=== PATIENT | female | born 1995 | race Caucasian/White ===

== ENCOUNTER 2020-07-19 07:30 | Outpatient (REF) | payer MEDICAID, SELFPAY ==
[2020-07-19 11:23] LABS: MANUAL DIFF FLAG NO
[2020-07-19 11:42] LABS: Basophils Percent Auto 0.2 % (0-2); Eosinophils Absolute Auto 0.1 X10*3/uL (0.0-0.4); Eosinophils Percent Auto 1.3 % (0-4); Hemoglobin 13.7 g/dl (12.0-16.0); Imm Gran Abs Auto 0.03 X10*3/uL (0.00-0.03); Imm Gran Pct Auto 0.3 % (0.0-0.4); Lymphocytes Absolute Auto 2.6 X10*3/uL (1.2-4.9); Lymphocytes Percent Auto 29.4 % (20-40); Mean Corpuscular HGB Conc 32.6 g/dl (31.0-35.0); Mean Corpuscular Hemoglobin 29.6 pg (27.0-33.0); Mean Corpuscular Volume 90.7 fL (80-98); Mean Platelet Volume 10.6 fL (9.4-12.3); Monocytes Absolute Auto 0.5 X10*3/uL (0.1-1.2); Monocytes Percent Auto 6.1 % (2-11); Neutrophils Absolute Auto 5.6 X10*3/uL (2.0-8.3); Neutrophils Percent Auto 62.7 % (45-73); Platelet Count 289 X10*3/uL (160-400); Red Blood Count 4.63 X10*6/uL (4.20-5.50); Red Cell Distribution Width 12.3 % (11.0-16.0); White Blood Count 8.9 X10*3/uL (4.8-10.8)
[2020-07-19 12:19] LABS: TSH reflex Free T4 1.14 mIU/mL (0.32-4.0); Vitamin D 25-OH Total 9.8 ng/mL (>30)
[2020-07-19 12:21] LABS: Alanine Aminotransferase 24 U/L (0-31); Anion Gap 13 (12-20); Aspartate Amino Transferase 18 U/L (5-31); Blood Urea Nitrogen 18 mg/dL (9-16); Carbon Dioxide 26 mmol/L (22-29); Chloride 105 mmol/L (96-108); Cholesterol 230 mg/dL; Estimated Glomerular Filt Rate > 60; Glucose Fasting 104 mg/dL (60-99); HDL Cholesterol 35 mg/dL; LDL Cholesterol Calculated 143 mg/dl; Potassium 4.1 mmol/l (3.3-5.1); Sodium 140 mmol/L (135-145); Triglycerides 260 mg/dL
== END 2020-07-19 07:31 | disposition home or self-care (01) ==
LOC: HO.HMGCLDS 07:30
PROVIDERS: PCP Internal Medicine; Visit Provider Internal Medicine
DX: E55.9 Vitamin D deficiency, unspecified (principal); E66.09 Other obesity due to excess calories; Z68.34 Body mass index [BMI] 34.0-34.9, adult; E78.2 Mixed hyperlipidemia; Z00.01 Encounter for general adult medical examination with abnormal findings; I10 Essential (primary) hypertension
CPT/HCPCS: 36415; 80048; 80061; 82306; 84443; 84450; 84460; 85025

== ENCOUNTER → 2020-08-04 09:49 | Outpatient (BNVA) | payer OTHER, SELFPAY | PROVIDERS: PCP Internal Medicine; Visit Provider Obstetrics & Gynecology | DX: Z30.09 Encounter for other general counseling and advice on contraception (principal) | CPT/HCPCS: 99212 ==

== ENCOUNTER 2021-02-28 09:57 | Outpatient (REF) | payer OTHER, SELFPAY ==
[2021-02-28 11:14] LABS: MANUAL DIFF FLAG NO
[2021-02-28 11:28] LABS: Basophils Percent Auto 0.3 % (0-2); Eosinophils Absolute Auto 0.1 X10*3/uL (0.0-0.4); Eosinophils Percent Auto 1.4 % (0-4); Hematocrit 39.6 % (37-47); Hemoglobin 12.9 g/dl (12.0-16.0); Imm Gran Abs Auto 0.03 X10*3/uL (0.00-0.03); Imm Gran Pct Auto 0.4 % (0.0-0.4); Lymphocytes Absolute Auto 2.1 X10*3/uL (1.2-4.9); Lymphocytes Percent Auto 26.4 % (20-40); Mean Corpuscular HGB Conc 32.6 g/dl (31.0-35.0); Mean Corpuscular Hemoglobin 29.1 pg (27.0-33.0); Mean Corpuscular Volume 89.4 fL (80-98); Mean Platelet Volume 10.1 fL (9.4-12.3); Monocytes Absolute Auto 0.5 X10*3/uL (0.1-1.2); Monocytes Percent Auto 5.8 % (2-11); Neutrophils Absolute Auto 5.2 X10*3/uL (2.0-8.3); Neutrophils Percent Auto 65.7 % (45-73); Platelet Count 295 X10*3/uL (160-400); Red Blood Count 4.43 X10*6/uL (4.20-5.50); Red Cell Distribution Width 12.5 % (11.0-16.0); White Blood Count 7.9 X10*3/uL (4.8-10.8)
[2021-02-28 11:31] LABS: Estimated Average Glucose 108 mg/dL; Hemoglobin A1c % 5.4 %
[2021-02-28 14:21] LABS: Cholesterol 253 mg/dL; Glucose Fasting 101 mg/dL (60-99); HDL Cholesterol 36 mg/dL; LDL Cholesterol Calculated 153 mg/dl; Triglycerides 324 mg/dL
[2021-02-28 14:44] LABS: TSH reflex Free T4 1.32 uIU/mL (0.32-4.0); Vitamin D 25-OH Total 31.3 ng/mL (>30)
== END 2021-02-28 09:58 | disposition home or self-care (01) ==
LOC: HO.HMGCLDS 09:57
PROVIDERS: PCP Internal Medicine; Visit Provider Internal Medicine
DX: E66.09 Other obesity due to excess calories (principal); Z68.34 Body mass index [BMI] 34.0-34.9, adult; E55.9 Vitamin D deficiency, unspecified; E78.2 Mixed hyperlipidemia; R53.83 Other fatigue; E07.89 Other specified disorders of thyroid
CPT/HCPCS: 36415; 80061; 82306; 82947; 83036; 84443; 85025

== ENCOUNTER 2021-03-08 11:37 | Outpatient (REF) | payer OTHER, SELFPAY ==
--- NOTE | ~2021-03-08 | US_ITS ---
EXAMINATION: US THYROID CLINICAL INFORMATION: Other specified disorders of thyroid. COMPARISON: None TECHNIQUE: Linear transducer grayscale and color Doppler examination with attention to the region of the thyroid. FINDINGS: SIZE: Measurements of the thyroid lobes and nodules are given in sagittal, anteroposterior and transverse dimensions respectively. Right Thyroid Lobe: 5.1 x 1.8 x 1.9 cm, volume 9.1 mL. Parenchyma: The gland echotexture is homogeneous. Thyroid vascularity is normal. Left Thyroid Lobe: 4.5 x 1.6 x 1.9 cm, volume 7.2 mL. Parenchyma: The gland echotexture is homogeneous. Thyroid vascularity is normal. Isthmus: 0.3 cm in maximum AP dimension. Estimated total number of nodules greater than or equal to 1 cm: 0. Accelerator Technician nodules are described as follows: 1. Location: Right mid pole. Size: 0.3 x 0.3 x 0.3 cm, volume 0.2 mL. Nodule characteristics: Composition: Cystic(0). Internal specular echo comet tail ring down (Colloid cyst) ACR TI-RADS total points: 0 ACR TI-RADS category: 1 2. Location: Right mid pole. Size: 0.3 x 0.3 x 0.3 cm, volume 0.009 mL. Nodule characteristics: Composition: Cystic(0). Internal specular echo comet tail ring down (Colloid cyst) ACR TI-RADS total points: 0 ACR TI-RADS category: 1 3. Location: Left lower pole. Size: 0.4 x 0.3 x 0.4 cm, volume 0.03 mL. Nodule characteristics: Composition: Cystic(0). Internal specular echo comet tail ring down (Colloid cyst) ACR TI-RADS total points: 0 ACR TI-RADS category: 1 NODES: No lymphadenopathy is seen in the tissue surrounding the thyroid gland. US/US thyroid IMPRESSION: 1. Thyroid normal in size. 2. There are 3 incidental colloid cysts under 5 mm. ACR TI-RADS RECOMMENDATION REFERENCE: Ultrasound-guided fine-needle aspiration, followup ultrasound, no further follow up. * TR1 (0 point) and TR 2 (2 points): No FNA or follow up * TR3 (3 points): FNA if more than or equal to 2.5 cm in maximum dimension, followup ultrasound in 1, 3 and 5 years if 1.5 to 2.4 cm in maximum dimension. * TR4 (4-6 points): FNA if more than or equal to 1.5 cm in maximum dimension, followup ultrasound in 1, 2, 3 and 5 years if 1 to 1.4 cm in maximum dimension. * TR5 (more than or equal to 7 points): FNA if more than or equal to 1 cm in maximum dimension, followup ultrasound every year for 5 years if 0.5 to 0.9 cm in maximum dimension. * TR3, TR4 or TR5 nodules that are below the size threshold for follow up receive no follow up.
== END 2021-03-08 11:38 | disposition home or self-care (01) ==
LOC: HO.US 11:37
PROVIDERS: PCP Internal Medicine; Visit Provider Internal Medicine
DX: E07.89 Other specified disorders of thyroid (principal)
CPT/HCPCS: 76536

== ENCOUNTER 2023-05-08 15:35 | Outpatient (AMB) | payer OTHER, SELFPAY ==
--- NOTE | 2023-05-08 15:38 | A.OFFPC_ITS ---
Vital Signs 05/08/23 15:39 Height 5 ft 7 in Weight 180 lb BMI 28.2 BP 110/72 Blood Pressure Location Rt brachial Position Sitting Pulse 90 Pulse Source Pulse Oximeter Pulse Oximetry (%) 98 Oxygen Delivery Method Room Air Intake Visit Reasons: Excessive hair loss Intake Note: Pt is here today c/o excessive hair loss Allergies No Known Allergies Allergy (Verified 05/08/23 15:51) Medication List - Last Reconciled 05/08/23 by Rani Davis MD No Known Home Meds Tobacco use date assessed: 05/08/23 Dental Screening Dental Screen Date: 05/08/23 Did you have a dental visit in the last 12 months?: Yes Did you have a dental problem in the last 6 months where you did not have access to dental care?: Yes Was dental information given to patient?: Patient has dentist HPI Excessive hair loss HPI Details 28-year-old lady here today complaining thinning hair, which has started approximately several months ago. Patient states that she does not color her hair frequently, does not use hair straightening chemicals . She also complains of feeling tired more than usual,, having more anxiety attacks. Patient states that she has been under lot of stress lately taking care of 6 children with 5 under the age of 8. left her, and has no family around to help. [facility] Medical History (Updated 05/08/23 @ 16:11 by Rani Davis MD) Anxiety and depression Hair thinning Palpable thyroid Fatigue Tubal ligation evaluation Rash Papanicolaou smear of cervix within last year Obesity Vitamin D deficiency Mixed dyslipidemia Surgical History No pertinent past surgical history Family History Father No problems noted. Mother No problems noted. Brother No problems noted. Sister No problems noted. Sister No problems noted. Social History Housing: Apartment Alcohol intake: never Patient Tobacco Use Status: Current everyday Tobacco user e-Cigarette/Vaping Use: Never Used Current occupational status: employed Vision needs: Yes Questionnaire PHQ-9 Over the last 2 weeks, how often have you been bothered by any of the following problems? 1. Little interest or pleasure in doing things: nearly every day 2. Feeling down, depressed, or hopeless: more than half the days 3. Trouble falling or staying asleep, or sleeping too much: several days 4. Feeling tired or having little energy: nearly every day 5. Poor appetite or overeating: more than half the days 6. Feeling bad about yourself - or that you are a failure or have let yourself or your family down: more than half the days 7. Trouble concentrating on things, such as reading the newspaper or watching television: nearly every day 8. Moving or speaking so slowly that other people could have noticed. Or the opposite - being so fidgety or restless that you have been moving around a lot more than usual: nearly every day 9. Thoughts that you would be better off or of hurting yourself in some way: not at all Total score: 19 Depression Screening Interpretation: Positive Depression Screening Follow-up: Community Mental Health Worker F/U 94910 - PHQ-9 Billing: Yes Source: Developed by Drs. Jay Jay Dykes, Michelle Pérez, Juan Yeager and colleagues, with an educational carl from [employer]. AUDIT C Alcohol Use Questionnaire (AUDIT-C) 1. How often do you have a drink containing alcohol?: Never Total Score: 0 THANH-7 AMB Questionnaire THANH-7 Feeling nervous, anxious, or on edge: 3 = Nearly every day Not being able to stop or control worryin = Several days Worrying too much about different things: 2 = More than half the days Trouble relaxin = Nearly every day Being so restless that it is hard to sit still: 0 = Not at all Becoming easily annoyed or irritable: 3 = Nearly every day Feeling afraid as if something awful might happen: 0 = Not at all Total THANH-7 score (0-4 normal; 5-9 mild; 10-14 moderate; 15-21 severe): 12 Source: Developed by Drs. Jay Jay Dykes, Michelle Pérez, Juan Yeager and colleagues, with an educational carl from [employer]. THANH-7 Assessment Billing THANH-7 Assessment Tool: THANH-7 Assessment 36777 Review of Systems Const Reports fatigue, Denies fever(s), Denies headache(s) and Denies weakness Eyes Reports no additional complaints ENT Denies dizziness, Denies headache(s), Denies nasal congestion, Denies nasal discharge and Denies sore throat Card Denies chest pain, Denies lightheadedness, Denies palpitations and Denies dyspnea Resp Denies chest congestion, Denies cough, Denies dyspnea and Denies wheezing GI Denies abdominal pain, Denies change in bowel habits and Denies heartburn Reports no additional complaints Musc Reports no additional complaints Skin/Breast Reports system reviewed and no additional complaints, except as documented Neuro Denies dizziness, Denies headache(s) and Denies weakness Psych Reports as per HPI Endo Reports fatigue, Denies polydipsia, Denies polyuria and Denies palpitations Miah/Lymph Reports no additional complaints, Denies easy bleeding and Denies easy bruising Aller/Immun Denies seasonal rhinorrhea and Denies wheezing Physical exam (Primary Care) Vital Signs: Last Vital Signs Pulse 90 05/08/23 15:39 BP 110/72 05/08/23 15:39 Pulse Ox 98 05/08/23 15:39 Oxygen Delivery Method Room Air 05/08/23 15:39 BMI result Body Mass Index 28.2 Tobacco/Smoking Status: Tobacco use Status Tobacco use date assessed 05/08/23 05/08/23 15:43 Patient Tobacco Use Status Current everyday Tobacco 05/08/23 15:43 e-Cigarette/Vaping Use Never Used 05/08/23 15:45 PHQ-9: PHQ-9 Score PHQ-9: Total score 19 05/08/23 16:11 Depression Screening Interpretation: Positive Depression Screening Follow-up: Community Mental Health Worker F/U Const General: comfortable, no acute distress, awake and Physically active Nutritional Appearance: overweight Orientation/consciousness: patient oriented x3 HENMT Head: Yes normal to inspection, Yes normocephalic, Yes atraumatic and No scalp lesion General nose exam: Normal external nose present and No nasal discharge present Face and sinus: Yes normal facial exam and Yes face symmetric Mouth: Normal oral and palatal mucosa present, oropharynx normal and moist mucous membranes Neck Neck: Yes full ROM, Yes no lymphadenopathy and Yes supple Thyroid: other (palpble , non tender) Resp Auscultation: clear to auscultation bilaterally Cardio Other: S1-S2 present regular rate and rhythm GI Other: Normal bowel sounds, soft, nontender 8 Skin Other: No scalp lesions seen, no patchy alopecia noted Neuro General: patient oriented x3, gait normal, tone normal, moves all extremities, Normal light touch and pain sensation, no focal motor deficits and CN's II-XI intact bilaterally Psych Appearance: grossly normal and well kempt Mental Status: mental status grossly normal Speech and movement: Normal speech and movement present Affect: normal affect Attitude: cooperative Thought process: Normal thought process present Thought content: Normal thought content present Assessment and Plan Assessment & Plan (1) Palpable thyroid: Code(s): E07.89 - Other specified disorders of thyroid Plan: TSH and thyroid peroxidase antibody ordered (2) Mixed dyslipidemia: Code(s): E78.2 - Mixed hyperlipidemia Plan: Fasting lipid panel ordere . Advised adherence to low-cholesterol diet and regular exercise, at least 30 minutes 3 to 4 times a week. Advised patient to make healthy food choices, eat more fruits, vegetables, whole grains, wild c aught fish and low-fat dairy. Limit amount of meat and fried or fatty food products, as well as processed foods and fast foods. (3) Hair thinning: Code(s): L65.9 - Nonscarring hair loss, unspecified Plan: Will check CBC, TSH , thyroid peroxidase antibodies, vitamin B12, folic acid and vitamin-D, fasting glucose hemoglobin A1c and iron profile (4) Skin cancer screening: Code(s): Z12.83 - Encounter for screening for malignant neoplasm of skin Plan: Dermatology referral ordered (5) Anxiety and depression: Code(s): F41.9 - Anxiety disorder, unspecified; F32.A - Depression, unspecified Plan: Referred to community mental health worker for assistance in getting in to see therapist and psych, does not want to start any medications at present time. Orders: Orders Complete Blood Count Auto Diff 05/08/23 E07.89 - Other specified disorders of thyroid, E55.9 - Vitamin D deficiency, unspecified, E78.2 - Mixed hyperlipidemia, L65.9 - Nonscarring hair loss, unspecified, R53.83 - Other fatigue IRON PROFILE 05/08/23 E07.89 - Other specified disorders of thyroid, E55.9 - Vitamin D deficiency, unspecified, E78.2 - Mixed hyperlipidemia, L65.9 - Nonscarring hair loss, unspecified, R53.83 - Other fatigue Lipid Panel 05/08/23 E07.89 - Other specified disorders of thyroid, E55.9 - Vitamin D deficiency, unspecified, E78.2 - Mixed hyperlipidemia, L65.9 - Nonscarring hair loss, unspecified, R53.83 - Other fatigue Hemoglobin A1c 05/08/23 E07.89 - Other specified disorders of thyroid, E55.9 - Vitamin D deficiency, unspecified, E78.2 - Mixed hyperlipidemia, L65.9 - Nonscarring hair loss, unspecified, R53.83 - Other fatigue Glucose Fasting 05/08/23 E07.89 - Other specified disorders of thyroid, E55.9 - Vitamin D deficiency, unspecified, E78.2 - Mixed hyperlipidemia, L65.9 - Nonscarring hair loss, unspecified, R53.83 - Other fatigue Vitamin D 25-OH Total 05/08/23 E0.89 - Other specified disorders of thyroid, E55.9 - Vitamin D deficiency, unspecified, E78.2 - Mixed hyperlipidemia, L65.9 - Nonscarring hair loss, unspecified, R53.83 - Other fatigue Vitamin B12 and Folate 05/08/23 E07.89 - Other specified disorders of thyroid, E55.9 - Vitamin D deficiency, unspecified, E78.2 - Mixed hyperlipidemia, L65.9 - Nonscarring hair loss, unspecified, R53.83 - Other fatigue TSH reflex Free T4 05/08/23 E07.89 - Other specified disorders of thyroid, E55.9 - Vitamin D deficiency, unspecified, E78.2 - Mixed hyperlipidemia, L65.9 - Nonscarring hair loss, unspecified, R53.83 - Other fatigue Thyroid Peroxidase Antibodies 05/08/23 E07.89 - Other specified disorders of thyroid, E55.9 - Vitamin D deficiency, unspecified, E78.2 - Mixed hyperlipidemia, L65.9 - Nonscarring hair loss, unspecified, R53.83 - Other fatigue Referrals Dermatology Referral L65.9 - Nonscarring hair loss, unspecified, Z12.83 - Encounter for screening for malignant neoplasm of skin Coding Level of Care Code Est Pt Level 3 (51254) Diagnoses Palpable thyroid E0 Mixed dyslipidemia E78.2 Hair thinning L65.9 Skin cancer screening Z12.83 Anxiety and depression F41.9; F32.A Additional Codes THANH-7 Assessment Billing - THANH-7 Assessment Tool: THANH-7 Assessment 60280 ([id number])
[2023-05-08 15:39] VITALS: BP 110/72; PULSE 90; O2SAT 98; BMI 28.2
== END 2023-05-08 16:09 | disposition home or self-care (01) ==
PROVIDERS: PCP Internal Medicine; Visit Provider Internal Medicine
DX: E07.89 Other specified disorders of thyroid (principal); E78.2 Mixed hyperlipidemia; L65.9 Nonscarring hair loss, unspecified; F41.9 Anxiety disorder, unspecified; Z12.83 Encounter for screening for malignant neoplasm of skin; F32.A Depression, unspecified
CPT/HCPCS: 99213

== ENCOUNTER 2023-05-09 07:38 | Outpatient (REF) | payer OTHER, SELFPAY ==
[2023-05-09 11:23] LABS: MANUAL DIFF FLAG NO
[2023-05-09 11:32] LABS: Basophils Percent Auto 0.2 % (0-2); Eosinophils Absolute Auto 0.1 X10*3/uL (0.0-0.4); Eosinophils Percent Auto 1.4 % (0-4); Hematocrit 41.5 % (37.0-47.0); Hemoglobin 13.8 g/dl (12.0-16.0); Imm Gran Abs Auto 0.03 X10*3/uL (0.00-0.03); Imm Gran Pct Auto 0.4 % (0.0-0.4); Lymphocytes Absolute Auto 2.1 X10*3/uL (1.2-4.9); Lymphocytes Percent Auto 26.7 % (20-40); Mean Corpuscular HGB Conc 33.3 g/dl (31.0-35.0); Mean Corpuscular Hemoglobin 30.3 pg (27.0-33.0); Mean Corpuscular Volume 91.2 fL (80.0-98.0); Mean Platelet Volume 10.2 fL (9.4-12.3); Monocytes Absolute Auto 0.4 X10*3/uL (0.1-1.2); Monocytes Percent Auto 5.2 % (2-11); Neutrophils Absolute Auto 5.3 x10*3/uL (2.0-8.3); Neutrophils Percent Auto 66.1 % (45-73); Platelet Count 293 X10*3/uL (160-400); Red Blood Count 4.55 X10*6/uL (4.20-5.50); Red Cell Distribution Width 12.2 % (11.0-16.0)
[2023-05-09 11:47] LABS: Estimated Average Glucose 94 mg/dL; Hemoglobin A1c % 4.9 % (<6.0)
[2023-05-09 12:08] LABS: Cholesterol 179 mg/dL (<200); Glucose Fasting 95 mg/dL (60-99); HDL Cholesterol 43 mg/dL (>40); Iron 132 mcg/dL (30-160); LDL Cholesterol Calculated 104 mg/dL (<100); Percent Iron Saturation 49 % (15-50); Total Iron Binding Capacity 272 mcg/dL (228-428); Triglycerides 162 mg/dL (<150); Unsaturated Iron Binding 140 ug/dL
[2023-05-09 12:38] LABS: Folate 13.9 ng/mL (> or = 4.0); TSH reflex Free T4 1.25 uIU/mL (0.32-4.0); Vitamin B12 642 pg/mL (200-900); Vitamin D 25-OH Total 33.7 ng/mL (>30)
[2023-05-12 18:53] LABS: Thyroid Peroxidase Antibodies <1 IU/mL (<9)
== END 2023-05-09 07:39 | disposition home or self-care (01) ==
LOC: HO.HMGCLDS 07:38
PROVIDERS: PCP Internal Medicine; Visit Provider Internal Medicine
DX: E07.89 Other specified disorders of thyroid (principal); R53.83 Other fatigue; E55.9 Vitamin D deficiency, unspecified; E78.2 Mixed hyperlipidemia; L65.9 Nonscarring hair loss, unspecified
CPT/HCPCS: 36415; 80061; 82306; 82607; 82746; 82947; 83036; 83540; 84443; 85025; 86376

== ENCOUNTER 2023-10-14 13:20 | Outpatient (AMB) | payer OTHER, SELFPAY ==
[2023-10-14 13:23] VITALS: BP 118/70; PULSE 70; TEMP 37.1; O2SAT 97; BMI 29.3
--- NOTE | 2023-10-14 13:23 | MHC.OFFWIV ---
Intake Vital Signs 10/14/23 13:23 Height 5 ft 7 in Weight 187 lb BMI 29.3 BP 118/70 Blood Pressure Location Lt brachial Position Sitting Pulse 70 Pulse Source Pulse Oximeter Temp 98.7 F Temp Source Oral Pulse Oximetry (%) 97 Oxygen Delivery Method Room Air Intake Visit Reasons: EP ?Strep Throat [phone] Intake Note: pt is here today for strep throat started 3 days ago Patient Tobacco Use Status: Current everyday Tobacco user Allergies No Known Allergies Allergy (Verified 10/14/23 13:25) Do you need a note to return to daycare/school/sports/work: No HPI HPI Comments History of Present Illness Details This is a 28-year-old female with a past medical history of depression presenting for evaluation of a sore throat and subjective fevers that she has had for the past 3 days. Patient states that her mother was diagnosed with strep throat 5 days ago. The patient has not taken any medication for treatment of her symptoms. Patient states that she developed ear pain bilaterally, yesterday. [facility] Medical History Anxiety and depression Hair thinning Palpable thyroid Fatigue Tubal ligation evaluation Rash Papanicolaou smear of cervix within last year Obesity Vitamin D deficiency Mixed dyslipidemia Surgical History No pertinent past surgical history Family History Father No problems noted. Mother No problems noted. Brother No problems noted. Sister No problems noted. Sister No problems noted. Social History Housing: Apartment Alcohol intake: never Patient Tobacco Use Status: Current everyday Tobacco user e-Cigarette/Vaping Use: Never Used Current occupational status: employed Vision needs: Yes Review of Systems Const All systems reviewed & are unremarkable except as noted in HPI and below Denies chills, Reports fever(s) (subjective), Denies headache(s) and Reports malaise Eyes Reports no additional complaints ENT Reports otalgia, Denies headache(s), Reports sore throat and Denies tongue swelling Card Reports no additional complaints Resp Reports no additional complaints Neuro Denies headache(s) Aller/Immun Denies tongue swelling Physical Exam Vital Signs: Last Vital Signs Temp 98.7 F 10/14/23 13:23 Pulse 70 10/14/23 13:23 BP 118/70 10/14/23 13:23 Pulse Ox 97 10/14/23 13:23 Oxygen Delivery Method Room Air 10/14/23 13:23 BMI result Body Mass Index 29.3 Patient is afebrile. Const General: cooperative, comfortable, alert, awake and tired appearing Nutritional Appearance: average body habitus Orientation/consciousness: patient oriented x3 Limitations: no limitations HEENT Head: Yes normal to inspection and Yes normocephalic Ears: hearing grossly normal bilaterally, external ears normal, TM's normal bilaterally and EAC's normal General nose exam: Normal external nose present and Normal nares present Face and sinus: Yes normal facial exam Mouth: Normal oral and palatal mucosa present, tongue normal and oropharynx normal Teeth and gingiva: dentition normal Throat: No posterior oropharynx normal (There is erythema and edema of the posterior oropharynx, no exudates), Yes uvula midline and Yes posterior oropharynx abnormal Eyes General: appearance normal, both eyes and all related structures Neck Lymphatic: lymphadenopathy (anterior cervical) bilateral anterior cervical small Resp Effort & Inspection: normal respiratory effort Auscultation: clear to auscultation bilaterally Cardio Rate: regular rate Rhythm: regular rhythm Neuro General: patient oriented x3 Psych Appearance: grossly normal Mental Status: mental status grossly normal Insight: Good insight present (Psych) Judgement: Good judgement present (Psych) Results AMB Rapid Strep AMB Rapid Strep Negative Last Edit by KO Bee on 10/14/23 13:37 Results Reviewed Results Reviewed: Laboratory Last Values Strep Scn [facility] Negative 10/14/23 13:36 Rapid strep is negative. Assessment & Plan Assessment & Plan (1) Acute pharyngitis: Comment: Rapid strep is negative, however given her symptoms, her mother with strep throat and her examination, patient will be treated for strep pharyngitis. Code(s): J02.9 - Acute pharyngitis, unspecified Qualifiers: Pharyngitis/tonsillitis etiology: streptococcus Qualified Code(s): J02.0 - Streptococcal pharyngitis Plan: Penicillin 500 mg t.i.d. times 10 days. Orders: Orders AMB Rapid Strep Screen Today Z13.9 - Encounter for screening, unspecified Medications: New penicillin V potassium 500 mg PO TID 30 tabs 0RF Coding Level of Care Code Est Pt Level 3 (69102) Diagnoses Acute streptococcal pharyngitis J02.0 Pharyngitis/tonsillitis etiology: streptococcus Time Spent (min) 20
== END 2023-10-14 16:02 | disposition home or self-care (01) ==
PROVIDERS: PCP Internal Medicine; Visit Provider Physician Assistant
DX: J02.0 Streptococcal pharyngitis (principal); J02.9 Acute pharyngitis, unspecified
CPT/HCPCS: 87880; 99213

== ENCOUNTER 2023-12-24 11:43 | Outpatient (AMB) | payer OTHER, SELFPAY ==
[2023-12-24 12:33] VITALS: BP 120/72; PULSE 75; O2SAT 98; BMI 29.8
--- NOTE | 2023-12-24 12:33 | A.OFFPC_ITS ---
Vital Signs 12/24/23 12:33 Height 5 ft 7 in Weight 190 lb BMI 29.8 BP 120/72 Blood Pressure Location Rt brachial Position Sitting Pulse 75 Pulse Source Pulse Oximeter Pulse Oximetry (%) 98 Oxygen Delivery Method Room Air Intake Visit Reasons: Annual PE Intake Note: pt is here for annual exam Accompanied by: Self / Same As Patient Allergies No Known Allergies Allergy (Verified 12/24/23 13:00) Medication List - Last Reconciled 12/24/23 by Rani Davis MD aripiprazole 10 mg PO DAILY clonidine HCl 0.1 mg PO TID Tobacco use date assessed: 12/24/23 Dental Screening Dental Screen Date: 12/24/23 Did you have a dental visit in the last 12 months?: Yes Did you have a dental problem in the last 6 months where you did not have access to dental care?: No Was dental information given to patient?: Patient has dentist HPI Annual PE HPI Details 28-year-old lady here today for her phys ical exam. She has history of anxiety and depression currently on aripiprazole and clonidine, followed by Katerin Rowell.. She goes to [facility] for her routine Pap and pelvic exam. Smokes 1 pack a day, interested in quitting [facility] Medical History (Updated 01/20/24 @ 14:51 by Rani Davis MD) Reactive airway disease Anxiety and depression Hair thinning Palpable thyroid Fatigue Tubal ligation evaluation Rash Papanicolaou smear of cervix within last year Obesity Vitamin D deficiency Mixed dyslipidemia Surgical History No pertinent past surgical history Family History Father No problems noted. Mother No problems noted. Brother No problems noted. Sister No problems noted. Sister No problems noted. Social History Housing: Apartment Alcohol intake: never Patient Tobacco Use Status: Current everyday Tobacco user Cigarette Packs Per Day: 1 e-Cigarette/Vaping Use: Never Used Current occupational status: unemployed Cognitive needs: No Hearing needs: No Vision needs: Yes Female Reproductive History Menstrual control method: none Questionnaire PHQ-9 Over the last 2 weeks, how often have you been bothered by any of the following problems? 1. Little interest or pleasure in doing things: several days 2. Feeling down, depressed, or hopeless: not at all 3. Trouble falling or staying asleep, or sleeping too much: several days 4. Feeling tired or having little energy: several days 5. Poor appetite or overeating: not at all 6. Feeling bad about yourself - or that you are a failure or have let yourself or your family down: several days 7. Trouble concentrating on things, such as reading the newspaper or watching television: nearly every day 8. Moving or speaking so slowly that other people could have noticed. Or the opposite - being so fidgety or restless that you have been moving around a lot more than usual: not at all 9. Thoughts that you would be better off or of hurting yourself in some way: not at all Total score: 7 Depression Screening Interpretation: Negative (Currently sees Katerin Rowell) Depression Screening Done: Yes 74024 - PHQ-9 Billing: Yes Source: Developed by Drs. Jay Jay Dykes, Michelle Pérez, Juan Yeager and colleagues, with an educational carl from [employer]. Thrive Questionnaire Date Thrive assessed: 12/24/23 I am a: Patient What is your living situation today?: I have a steady place to live Within the past 12 months, did the food you bought not last and you didn't have the money to get more?: Never true Within the past 12 months, did you worry whether your food would run out before you got money to buy more?: Never true Do you have trouble paying for medicines?: No Do you have trouble getting transportation to medical appointments?: No Do you have trouble paying your heating and electricity bill?: No Do you have trouble taking care of your child, family member or friend?: No Do you have trouble with day-to-day activities such as bathing, preparing meals, shopping, managing finances, etc.?: No Are you currently unemployed and looking for a job?: No Are you interested in more education?: No Please select the resources that you would like help with: None Currently or been in a relationship where the following occur: no concerns reported THRIVE Score: 0 AUDIT C Alcohol Use Questionnaire (AUDIT-C) 1. How often do you have a drink containing alcohol?: Monthly or less 2. How many drinks containing alcohol do you have on a typical day when you are drinking?: 1 or 2 3. How often do you have six or more drinks on one occasion?: Never Total Score: 1 Score Reviewed/Action Taken: Yes THANH-7 AMB Questionnaire THANH-7 Date THANH - 7 assessed: 12/24/23 Feeling nervous, anxious, or on edge: 2 = More than half the days Not being able to stop or control worryin = More than half the days Worrying too much about different things: 2 = More than half the days Trouble relaxin = Nearly every day Being so restless that it is hard to sit still: 1 = Several days Becoming easily annoyed or irritable: 1 = Several days Feeling afraid as if something awful might happen: 0 = Not at all Total THANH-7 score (0-4 normal; 5-9 mild; 10-14 moderate; 15-21 severe): 11 Source: Developed by Drs. Jay Jay yDkes, Michelle Pérez, Juan Yeager and colleagues, with an educational carl from [employer]. THANH-7 Assessment Billing THANH-7 Assessment Tool: THANH-7 Assessment 30939 (sees psychiatry) Review of Systems Const Denies fatigue, Denies fever(s), Denies headache(s) and Denies weakness Eyes Reports no additional complaints ENT Denies dizziness, Denies headache(s), Denies nasal congestion, Denies nasal discharge and Denies sore throat Card Denies chest pain, Denies lightheadedness, Denies palpitations and Denies dyspnea Resp Denies chest congestion, Denies cough, Denies dyspnea and Denies wheezing GI Denies abdominal pain, Denies change in bowel habits and Denies heartburn Reports no additional complaints Musc Reports no additional complaints Skin/Breast Denies breast swelling, Denies breast pain, Denies breast mass and Denies rash Neuro Denies dizziness, Denies headache(s) and Denies weakness Psych Reports as per HPI Endo Denies fatigue, Denies polydipsia, Denies polyuria and Denies palpitations Miah/Lymph Denies easy bleeding and Denies easy bruising Aller/Immun Denies seasonal rhinorrhea and Denies wheezing Physical exam (Primary Care) Vital Signs: Last Vital Signs Pulse 75 12/24/23 12:33 BP 120/72 12/24/23 12:33 Pulse Ox 98 12/24/23 12:33 Oxygen Delivery Method Room Air 12/24/23 12:33 BMI result Body Mass Index 29.8 Tobacco/Smoking Status: Tobacco use Status Tobacco use date assessed 12/24/23 12/24/23 12:35 Patient Tobacco Use Status Current everyday Tobacco 12/24/23 12:35 e-Cigarette/Vaping Use Never Used 12/24/23 12:35 PHQ-9: PHQ-9 Score PHQ-9: Total score 7 01/20/24 14:41 Depression Screening Interpretation: Negative (Currently sees Katerin Rowell) Thrive Assessment: Date of Thrive Assessment Date Thrive assessed 12/24/23 12/24/23 13:54 Currently or been in a relationship where the following occur: no concerns reported Const General: no acute distress Nutritional Appearance: overweight Orientation/consciousness: patient oriented x3 HENMT Head: Yes normal to inspection and Yes normocephalic General nose exam: Normal external nose present Face and sinus: Yes normal facial exam and Yes face symmetric Mouth: Normal oral and palatal mucosa present, oropharynx normal and moist mucous membranes Eyes General: appearance normal, both eyes and all related structures Neck Neck: Yes full ROM, Yes no lymphadenopathy and Yes supple Thyroid: other (palpble , non tender) Chest Chest palpation & inspection: normal inspection of the chest Breast/axilla palpation: normal palpation of the breasts Resp Auscultation: clear to auscultation bilaterally Cardio Other: S1-S2 present regular rate and rhythm GI Other: Normal bowel sounds, soft, nontender Auscultation: normal bowel sounds General: Yes no CVA tenderness and Yes deferred Back/Spine/Pelvis Back: no CVA tenderness and No back tenderness Skin General skin exam: no rashes or lesions noted Neuro General: patient oriented x3, gait normal, tone normal, moves all extremities, Normal light touch and pain sensation, no focal motor deficits and CN's II-XI intact bilaterally Extrem General: Yes full ROM, Yes no joint enlargement, Yes no pedal edema and Yes normal gait Psych Appearance: grossly normal and well kempt Mental Status: mental status grossly normal Speech and movement: Normal speech and movement present Affect: normal affect Thought process: Normal thought process present Thought content: Normal thought content present Assessment and Plan Assessment & Plan (1) Annual visit for general adult medical examination with abnormal findings: Code(s): Z00.01 - Encounter for general adult medical examination with abnormal findings Plan: Will check appropriate labs. Recommended dental visit every 6 months and regular eye exams, at least every 2 years. Take adequate calcium in diet and vitamin-D 3 at 2000 IU per cap once a day, in addition to weight-bearing exercises to help maintain good muscle tone and weight control. Instructed to do self-breast exam, and recommended to get yearly mammogram, starting at age 40. Up-to-date with her vaccines but has not received her COVID booster. Currently goes to [facility] for her routine Pap and pelvic exam (2) Mixed dyslipidemia: Code(s): E78.2 - Mixed hyperlipidemia Plan: Ordered fasting lipid panel and liver enzymes. Reinforced importance of following a low-cholesterol diet and getting regular exercise (3) Anxiety and depression: Comment: Goes to [facility] , sees Katerin Jane Code(s): F41.9 - Anxiety disorder, unspecified; F32.A - Depression, unspecified Plan: Currently on aripiprazole and clonidine, currently followed at [facility] by Katerin Rowell (4) Reactive airway disease: Code(s): J45.909 - Unspecified asthma, uncomplicated Qualifiers: Asthma severity: unspecified severity Asthma persistence: unspecified Asthma complication type: uncomplicated Qualified Code(s): J45.909 - Unspecified asthma, uncomplicated Plan: Prescription sent for albuterol inhaler, 2 puffs in every 6 hours as needed for episodes of wheezing and bronchospasm. (5) Cigarette smoker motivated to quit: Code(s): F17.210 - Nicotine dependence, cigarettes, uncomplicated Plan: Discussed options for smoking cessation with medications. Pt wishes to try Nicoderm patch. Pt advised to apply the nicotine patch as directed on cigarette quit day. Discussed common side effects and strongly advised not to smoke while using the patch. If developes any adverse effects please call office. Follow up in office 4 weeks Orders: Orders Aspartate Amino Transferase 12/24/23 R53.83 - Other fatigue, E78.2 - Mixed hyperlipidemia, Z00.01 - Encounter for general adult medical examination with abnormal findings, J45.909 - Unspecified asthma, uncomplicated, F41.9 - Anxiety disorder, unspecified, F32.A - Depression, unspecified Complete Blood Count Auto Diff 12/24/23 R53.83 - Other fatigue, E78.2 - Mixed hyperlipidemia, Z00.01 - Encounter for general adult medical examination with abnormal findings, J45.909 - Unspecified asthma, uncomplicated, F41.9 - Anxiety disorder, unspecified, F32.A - Depression, unspecified Lipid Panel 12/24/23 R53.83 - Other fatigue, E78.2 - Mixed hyperlipidemia, Z00.01 - Encounter for general adult medical examination with abnormal findings, J45.909 - Unspecified asthma, uncomplicated, F41.9 - Anxiety disorder, u nspecified, F32.A - Depression, unspecified Alanine Aminotransferase 12/24/23 R53.83 - Other fatigue, E78.2 - Mixed hyperlipidemia, Z00.01 - Encounter for general adult medical examination with abnormal findings, J45.909 - Unspecified asthma, uncomplicated, F41.9 - Anxiety disorder, unspecified, F32.A - Depression, unspecified Basic Metabolic Panel Fasting 12/24/23 R53.83 - Other fatigue, E78.2 - Mixed hyperlipidemia, Z00.01 - Encounter for general adult medical examination with abnormal findings, J45.909 - Unspecified asthma, uncomplicated, F41.9 - Anxiety disorder, unspecified, F32.A - Depression, unspecified Vitamin D 25-OH Total 12/24/23 R53.83 - Other fatigue, E78.2 - Mixed hyperlipidemia, Z00.01 - Encounter for general adult medical examination with abnormal findings, J45.909 - Unspecified asthma, uncomplicated, F41.9 - Anxiety disorder, unspecified, F32.A - Depression, unspecified Medications: New albuterol sulfate 90 mcg/actuation 2 puffs inhalation Q6H PRN 8.5 grams 0RF shortness of breath or wheezing J45.909 - Unspecified asthma, uncomplicated nicotine 1 patch transdermal DAILY 28 ea 0RF Coding Level of Care Code Est Pt Prev Care 18-39y([id number]) Diagnoses Annual visit for general adult medical examination with abnormal findings Z00.01 Mixed dyslipidemia E78.2 Anxiety and depression F41.9; F32.A Reactive airway disease without complication, unspecified asthma severity, unspecified whether persistent J45.909 Asthma severity: unspecified severity Asthma persistence: unspecified Asthma complication type: uncomplicated Cigarette smoker motivated to quit F17.210 Additional Codes THANH-7 Assessment Billing - THANH-7 Assessment Tool: THANH-7 Assessment 80220 ([id number])
== END 2023-12-24 14:09 | disposition home or self-care (01) ==
PROVIDERS: Visit Provider Internal Medicine
DX: Z00.00 Encounter for general adult medical examination without abnormal findings (principal); E78.2 Mixed hyperlipidemia; F41.9 Anxiety disorder, unspecified; F32.A Depression, unspecified; J45.909 Unspecified asthma, uncomplicated; F17.210 Nicotine dependence, cigarettes, uncomplicated
CPT/HCPCS: 99395

== ENCOUNTER 2024-09-17 09:32 | Outpatient (AMB) | payer OTHER, SELFPAY ==
[2024-09-17 09:39] VITALS: BP 122/82; PULSE 90; TEMP 36.9; O2SAT 97; BMI 29.6
--- NOTE | 2024-09-17 09:39 | AM.OFFWIN_ITS ---
Intake Vital Signs 09/17/24 09:39 Height 5 ft 7 in Weight 189 lb BMI 29.6 BP 122/82 Blood Pressure Location Rt brachial Position Sitting Pulse 90 Pulse Source Pulse Oximeter Temp 98.5 F Temp Source Oral Pulse Oximetry (%) 97 Intake Visit Reasons: EP-lt eye swollen, blurry vision, pain Intake Note: pt is here for left eye swelling, blurry vision and pain Patient Tobacco Use Status: Current everyday Tobacco user Accompanied by: Self / Same As Patient Allergies No Known Allergies Allergy (Verified 09/17/24 09:41) Do you need a note to return to daycare/school/sports/work: No HPI HPI Comments History of Present Illness Details This is a 29-year-old female who presented to the walk-in clinic complaining of left eye irritation, watering, and eyelid swelling. She states it started last night after she showered. She states she scored in her body wash and it went directly into her eye. She states she has been doing cool compresses with moderate improvement. [facility] Medical History (Updated 01/20/24 @ 14:51 by Rani Davis MD) Reactive airway disease Anxiety and depression Hair thinning Palpable thyroid Fatigue Tubal ligation evaluation Rash Papanicolaou smear of cervix within last year Obesity Vitamin D deficiency Mixed dyslipidemia Surgical History No pertinent past surgical history Family History Father No problems noted. Mother No problems noted. Brother No problems noted. Sister No problems noted. Sister No problems noted. Social History Housing: Apartment Alcohol intake: never Patient Tobacco Use Status: Current everyday Tobacco user Cigarette Packs Per Day: 1 e-Cigarette/Vaping Use: Never Used Current occupational status: unemployed Cognitive needs: No Hearing needs: No Vision needs: Yes Review of Systems Const All systems reviewed & are unremarkable except as noted in HPI and below Reports no additional complaints Eyes Reports no additional complaints ENT Reports no additional complaints Card Reports no additional complaints Resp Reports no additional complaints GI Reports no additional complaints Reports no additional complaints Musc Reports no additional complaints Skin/Breast Reports system reviewed and no additional complaints, except as documented Neuro Reports no additional complaints Psych Reports no additional complaints Endo Reports no additional complaints Miah/Lymph Reports no additional complaints Aller/Immun Reports no additional complaints Physical Exam Vital Signs: Last Vital Signs Temp 98.5 F 09/17/24 09:39 Pulse 90 09/17/24 09:39 BP 122/82 09/17/24 09:39 Pulse Ox 97 09/17/24 09:39 BMI result Body Mass Index 29.6 Const Other: Vital signs reviewed. Constitutional: Non-toxic appearing. No acute distress. Well-developed and well-nourished. HEENT: Normocephalic and atraumatic. Tympanic membranes without erythema, edema, or bulging bilaterally. External auditory canals without erythema or edema bilaterally. Moist mucous membranes. No pharyngeal erythema or exudates. There is conjunctival injection and erythema with watery drainage and mild swelling of the upper and lower eyelids. Skin: Warm and dry. No rashes or lesions noted. Neck: Full and painless range of motion. No cervical lymphadenopathy. Cardio: Regular rate. Pulmonary: No respiratory distress. No accessory muscle usage. Musculoskeletal: Normal range of motion in joints throughout the body. No deformity or other signs of injury. Neuro: Alert and oriented x4. Cranial nerves 2-12 grossly intact. No focal deficits appreciated. Psych: Normal mood and affect. Assessment & Plan Assessment & Plan (1) Bacterial conjunctivitis: Code(s): H10.9 - Unspecified conjunctivitis Plan: This is a 29-year-old female who presented to the walk-in clinic complaining of left eye irritation, redness, watering, and eyelid swelling x1 day after getting body wash in her eye. Patient very likely has conjunctival irritation due to the body wash exposure; however, bacterial conjunctivitis/blepharitis can not be ruled out given presence of some purulent discharge. Patient was sent home with erythromycin ophthalmic ointment to the left eye twice daily x7 days. I also recommended continuing with cool compresses as this did seem to help the patient's eyelid swelling. Patient was advised to follow-up here if her symptoms were to persist or worsen. Medications: New erythromycin 0.5 inches ophthalmic (eye) BID 7 days 3.5 grams 0RF Coding Level of Care Code Est Pt Level 3 (73964) Diagnoses Bacterial conjunctivitis H10.9
--- OUTSIDE RECORDS SUMMARY | 2024-09-17 10:09 | XMS_ITS | Encounter Summary ---
Author Organization [facility] Address [address] [place] [address] Care Team Providers Care Airline Attendant Name Role Phone Rani Davis MD Primary Care Provider Encounter Details Date Type Department Care Team (Late st Contact Info) Description 09/10/2024 Telephone Obstetrics and Gynecology - [place] [address] [place] [address] Nadya Gonzalez DO [address] [place] [address] Social History Tobacco Use Types Packs/Day Years Used Date Smoking Tobacco: Every Day Cigarettes Smokeless Tobacco: Never Alcohol Use Standard Drinks/Week Comments Not Currently 0 (1 standard drink = 0.6 oz pur e alcohol) Sex and Gender Information Value Date Recorded Sex Assigned at Not on file Gender Identity Not on file Sexual Orientation Not on file Job Start Date Occupation Industry Not on file Not on file Not on file documented as of this encounter Progress Notes * Lay Espinoza - 09/10/2024 10:48 AM EST Laparoscopic ovarian cystectomy, hysteroscopy, D & C has been scheduled on 09/29/[address] [facility] with Dr. Gonzalez. Patient has been notified by phone and a letter has been sent to her. MDcalendar has been updated and schedulers have been notified documented in this encounter Plan of Treatment Upcoming Encounters Date Type Department Care Team (Late st Contact Info) Description 09/22/2024 2:20 PM EST Consult Obstetrics and Gynecology - [address] [address] Maria Antonia Del Valle PA [address] [place] [address] 09/29/2024 1:00 PM EST Hospital Encounter [facility] OR [address] [place] [address] Nadya Gonzalez, [address] [place] [address] 09/29/2024 1:00 PM EST - 09/29/2024 3:00 PM EST Surgery [facility] OR [address] [place] [address] Nadya Gonzalez, [address] [place] [address] HYSTEROSCOPY WITH ENDOMETRIAL RESECTION,DILATION & CURETTAGE [[id number] (CPT??)] 10/14/2024 2:20 PM EST Office Visit Obstetrics and Gynecology - [address] [address] Maria Antonia Del Valle PA [address] [place] [address] Scheduled Procedures Name Priority Associated Diagnoses Date/Ti wa HYSTEROSCOPY WITH ENDOMETRIAL RESECTION Dermoid cyst of ovary, right Pelvic pain in female Uterine cyst 09/29/2024 1:00 PM EST EXCISION CYST OVARIAN LAPAROSCOPIC Dermoid cyst of ovary, right Pelvic pain in female Uterine cyst 09/29/2024 1:00 PM EST documented as of this encounter Visit Diagnoses Not on filedocumented in this encounter Care Teams Airline Attendant Relationship Specialty Start Date End Date Rani Davis MD [address] [place] [address] PCP - General Internal Medicine 12/22/20 documented as of this encounter
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
--- OUTSIDE RECORDS SUMMARY | 2024-09-17 10:09 | XMS_ITS | Encounter Summary ---
Author Organization [facility] Address [address] [place] [address] Care Team Providers Care Biometric Screener Name Role Phone Rani Davis MD Primary Care Provider Reason for Visit * Reason Comments Consult Er f/u Encounter Details Date Type Department Care Team (Late st Contact Info) Description 08/30/2024 2:30 PM EST Office Visit Obstetrics and Gynecology - [facility] [address] [place] [address] Nadya Gonzalez DO [address] [place] [address] Cyst, ovary, dermoid, right (Primary Dx); Pelvic pain in female; Uterine cyst Social History Tobacco Use Types Packs/Day Years [...] on file documented as of this encounter Last Filed Vital Signs Vital Sign Reading Time Taken Comments Blood Pressure 101/64 08/30/2024 2:42 PM EST Pulse 78 08/30/2024 2:42 PM EST Temperature - - Respiratory Rate - - Oxygen Saturation - - Inhaled Oxygen Concentration - - Weight 85.7 kg (189 lb) 08/30/2024 2:42 PM EST Height 167.6 cm (5' 6 ) 08/30/2024 2:42 PM EST Body Mass Index 30.51 08/30/2024 2:42 PM EST documented in this encounter Progress Notes * Nadya Carlos, DO - 08/30/2024 2:30 PM EST Images from the original note were not included. CHIEF COMPLAINT: Consult (Er f/u) IDENTIFIER:Cherie Garcia is a 29 y.o. female HPI: Pt presents today for ER follow up. Last month she was seen at [facility] ER for pelvic pain. US is below. In the months prior to this visit, Cherie had an unplanned and SAB. She followed her hCGs down to a non level. However, US in July in the ER, as below, shows a cystic structure in the uterus. Cherie did not think she desired another , but since the loss, she and her partner have been trying to conceive. It is possible this is a new , though patient reports she has been testing herself and her UPTs have been negative. She has had dermoid cysts before and has had them operated. If she is not , she does desiresurgical removal of below dermoid cyst. UTERUS: Size: 10.2 x 5.0 x 7.7 cm, volume 205.6 cc. Endometrial thickness: 1.5 cm. There is a 0.4 x 0.3 x 0.4 cm cystic lesion in the endometrial cavity. Morphology: Normal configuration and echotexture. RIGHT OVARY: Size: 6.2 x 3.6 x 4.8 cm, volume 55.2 cc. Morphology: Normal arterial and venous waveforms. There is a complex lesion with cystic and echogenic components, most likely representing a dermoid. It measures approximately 4.6 x 2.7 x 3.5 cm, likely a dermoid with interval increase in size since the prior ultrasound. In addition, there is a simple appearing cyst measuring 2.7 x 2.7 x 2.2 cm, likely a dominant follicle. LEFT OVARY: Size: 3.2 x 2.5 x 2.7 cm, volume 11.6 cc. Morphology: Normal echotexture. No pathologic cysts or mass. Normal arterial and venous waveforms. ADNEXA: Normal. No adnexal masses or fluid collections. ROS: GENERAL: Denies fever, chills and unintentional weight changes : negative for dysuria PROGRAM CLINICIAN: See HPI PAST MEDICAL HISTORY: OB History Para Term AB Living 9 6 6 3 6 SAB IAB Ectopic Multiple Live Births 2 1 6 # Outcome Date GA Lbr Yasir/2nd Weight Sex Type Anes PTL Lv 9 SAB 05/19/24 6w1d 8 Term 02/20/22 38w4d M Vag-Spont KARLENE Comments: Apg 8-9-9 7 Term 02/03/20 40w4d 3600 g (127 oz) F Vag-Spont None KARLENE Complications: Precipitate labor 6 IAB 09/2018 9w0d Complications: History of surgical procedure 5 Term 04/30/17 39w0d 3558 g (125.5 oz) M Vag-Spont EPI N KARLENE Comments: pt has custody Complications: depression, Lost custody of children 4 Term 01/16/16 39w0d 3175 g (112 oz) M Vag-Spont None N KARLENE Comments: pt has custody Complications: depression, Lost custody of children 3 Term 08/13/14 39w0d 4196 g (148 oz) F Vag-Spont EPI N KARLENE Comments: pt has custody Complications: Lost custody of children, depression, Cholelithiasis 2 Term 12/26/11 39w0d 3742 g (132 oz) M Vag-Spont EPI KARLENE Comments: pt just started seeing this child every other weekend . he is in the custody of thefather Complications: depression, Lost custody of children 1 2010 10w0d Patient Active Problem List Diagnosis Obesity (BMI 30-39.9) SOCIAL HISTORY: Social History Tobacco Use Smoking status: Every Day Current packs/day: 0.50 Types: Cigarettes Smokeless tobacco: Never Substance Use Topics Alcohol use: Not Currently Drug use: No FAMILY HISTORY: Family History Problem Relation Name Age of Onset No Known Problems Mother Geneva No Known Problems Father Kendrick No Known Problems Sister [place] No Known Problems Brother Edwin Other (Other: AIDS) Maternal Grandmother Omayra No Known Problems Maternal Grandfather No Known Problems Paternal Grandmother No Known Problems Paternal Grandfather Asthma Sister Indigo I have reviewed the following sections of the chart: active problem list, notes from last encounter, lab results, imaging MEDICATIONS: Your medication list Accurate as of August 30, 2024 3:30 PM. If you have any questions, ask your nurse or doctor. CONTINUE taking these medications Instructions Last Dose Given Next Dose Due metroNIDAZOLE 0.75 % (37.5mg/5 gram) vaginal gel Commonly known as: METROGEL Insert vaginally at bedtime x 5 nights VITAMIN ORAL Take 1 Tablet by mouth daily. ProAir HFA 90 mcg/actuation inhaler Generic drug: albuterol HFA Contraception: Nothing ALLERGIES: No Known Allergies PHYSICAL EXAM: Visit Vitals BP 101/64 Pulse 78 Ht 1.676 m (66 ) Wt 85.7 kg (189 lb) LMP 08/04/2024 (Approximate) BMI 30.51 kg/m?? OB Status Having periods Smoking Status Every Day BSA 1.95 m?? APPEARANCE:Healthy, alert, active, cooperative, and in no distress PSYCH: affect appropriate ASSESSMENT: 1. Cyst, ovary, dermoid, right 2. Pelvic pain in female 3. Uterine cyst PLAN: Will check hCG. If negative, patient would like to proceed with Dilation and Curettage, and laparoscopic removal of right dermoid cyst . If hCG is positive, will need to follow to see if they are rising indicating normal . If hCG is positive but not rising, will proceed with surgery. Patient is amenable to this plan. Orders Placed This Encounter Procedures HCG, quantitative Nadya Gonzalez DO documented in this encounter Plan of Treatment Upcoming Encounters Date Type Department Care Team (Late st Contact Info) Description 09/22/2024 2:20 PM EST Consult Obstetrics and Gynecology - [facility] [address] [place] [address] Maria Antonia Del Valle PA [address] [place] [address] 09/29/2024 1:00 PM EST Hospital Encounter [facility] OR [address] [place] [address] Nadya Gonzalez, DO [address] [place] [address] 09/29/2024 1:00 PM EST - 09/29/2024 3:00 PM EST Surgery [facility] OR [address] [place] [address] Nadya Gonzalez, DO [address] [place] [address] HYSTEROSCOPY WITH ENDOMETRIAL RESECTION,DILATION & CURETTAGE [06698 (CPT??)] 10/14/2024 2:20 PM EST Office Visit Obstetrics and Gynecology [address] [address] Maria Antonia Del Valle PA [address] [place] [address] Scheduled Procedures Name Priority Associated Diagnoses Date/Ti me HYSTEROSCOPY WITH ENDOMETRIAL RESECTION Dermoid cyst of ovary, right Pelvic pain in female Uterine cyst 09/29/2024 1:00 PM EST EXCISION CYST OVARIAN LAPAROSCOPIC Dermoid cyst of ovary, right Pelvic pain in female Uterine cyst 09/29/2024 1:00 PM EST documented as of this encounter Results * HCG, quantitative (08/30/2024 3:13 PM EST) hCG Quant <1 mIU/mL LAB CHEMISTRY METHOD 08/30/2024 7:42 PM EST [facility] Blood Venous blood specimen / Unknown Venipuncture / Unknown 08/30/2024 3:13 PM EST 08/30/2024 3:13 PM EST Narrative [facility] - 08/30/2024 7:42 PM EST Quantitative [...] ?1-3 Nadya Gonzalez DO LAB BLOOD ORDERABLES Performing Organization Address [facility]/State/ZIP Co de Phone Number [facility] [address] [place] [address], documented in this encounter Visit Diagnoses Diagnosis Cyst, ovary, dermoid, right- Primary Pelvic pain in female Unspecified symptom associated with female genital organs Uterine cyst Dermoid cyst of ovary, right Pelvic pain in female Unspecified symptom associated with female genital organs Uterine cyst documented in this encounter Care Teams Biometric Screener Relationship Specialty Start Date End Date Rani Davsi MD [address] [place] [address] PCP - General Internal Medicine 12/22/20 documented as of this encounter
== END 2024-09-17 10:17 | disposition home or self-care (01) ==
PROVIDERS: PCP Internal Medicine; Visit Provider Physician Assistant Medical
DX: H10.9 Unspecified conjunctivitis (principal)

== ENCOUNTER 2024-12-02 11:48 | Outpatient (REF) | payer OTHER, SELFPAY ==
--- NOTE | ~2024-12-02 | XR_ITS ---
EXAMINATION: XR ANKLE 3 OR MORE VIEWS LEFT HISTORY: M25.572 - Pain in left ankle and joints of left foot COMPARISON: There are no prior studies available for comparison. FINDINGS: Three views of the left ankle are submitted. Osseous mineralization is normal. There is no fracture or dislocation. The joint spaces are preserved. The soft tissues are unremarkable. XR/XR ankle LT min 3V IMPRESSION: Unremarkable examination of the left ankle. Electronically signed by: Jay Jay Jeter MD 12/02/2024 01:57 PM EDT
--- OUTSIDE RECORDS SUMMARY | 2024-12-02 14:48 | XMS_ITS | Encounter Summary ---
Author Organization [facility] Address [address] [place] [address] Care Team Providers Care Shingle Shearing Machine Operator Name Role Phone Rani Davis MD Primary Care Provider [phone] Reason for Referral * Consultation (Urgent) - Closed Specialty Diagnoses / Procedures Referred By Contac t Referred To Contact Orthopaedics Diagnoses Curvilinear bony fragment adjacent to the lateral cuneiform suspicious for an avulsion fracture. Modesta Miranda PA [address] [place] [address] Phone: tel: fax: Surgical [address] [address] Phone: tel: fax: Referral ID Status Reason Start Date Expiration Date V isits Requested Visits Authorized [id number] Closed Specialty Services Required 12/02/2024 12/02/2025 1 1 Reason for Visit * Reason Comments Ankle Pain Trauma left ankle to day Encounter Details Date Type Department Care Team (Late st Contact Info) Description 12/01/2024 10:35 PM EDT - 12/02/2024 12:03 AM EDT Emergency [facility] Emergency [address] [place] [id number] Sprain of left ankle, initial encounter (Primary Dx) Discharge Disposition: Home or Self Care Social History Tobacco Use Types Packs/Day Years Used Date Smoking Tobacco: Every Day Cigarettes Smokeless Tobacco: Never Tobacco Cessation:Ready to Q uit: Not Asked; Counseling Given: Not Answered Alcohol Use Standard Drinks/Week Comments Yes 0 (1 standard drink = 0.6 oz pur e alcohol) Interpersonal Safety Answer Date Record ed Physical Abuse 09/29/2024 Verbal Abuse 09/29/2024 Comments No Sex and Gender Information Value Date Recorded Sex Assigned at Female 09/23/2024 11:16 AM EST Legal Sex Female 8:58 AM EST Gender Identity Female 09/23/2024 11:16 AM EST Sexual Orientation Lesbian or Elena 09/23/2024 11 :16 AM EST documented as of this encounter Last Filed Vital Signs Vital Sign Reading Time Taken Comments Blood Pressure 119/48 12/01/2024 9:41 PM EDT Pulse 87 12/01/2024 9:41 PM EDT Temperature 37 ??C (98.6 ??F) 12/01/2024 9:41 PM EDT Respiratory Rate 16 12/01/2024 9:41 PM EDT Oxygen Saturation 98% 12/01/2024 10:39 PM EDT Inhaled Oxygen Concentration - - Weight - - Height - - Body Mass Index - - documented in this encounter Discharge Instructions * Attachments The following attachments cannot be sent through Care Everywhere. * Ankle Sprain (Bruneian) * RICE: General Info (Bruneian) documented in this encounter Medications at Time of Discharge ibuprofen (ADVIL,MOTRIN) 600 mg tablet Take 1 tablet (600 mg total) by mouth if needed for mild pain for up to 10 days. 30 tablet 12/01/2024 12/11/2024 albuterol HFA (ProAir HFA) 90 mcg/actuation inhaler 02/22/2022 documented as of this encounter Ordered Prescriptions Prescription Sig Dispense Quantity Refills Last Filled Start Date End Date ibuprofen (ADVIL,MOTRIN) 600 mg tablet Take 1 tablet (600 mg total) by mouth if needed for mild pain for up to 10 days. 30 tablet 12/01/2024 12/11/2024 ibuprofen (ADVIL,MOTRIN) 600 mg tablet Take 1 tablet (600 mg total) by mouth if needed for mild pain for up to 10 days. 30 tablet 12/01/2024 12/01/2024 documented in this encounter Discharge Disposition Disposition Code Departure Means Destination Comment s Home or Self Long Term PT AND VISITOR PROVIDED DISCHARGE INSTRUCTIONS, PLAN OF CARE, PRESCRIPTION , PT VERBALIZES UNDERSTANDING documented in this encounter Progress Notes * Rigoberto James RN - 12/01/2024 9:40 PM EDT Pt presents from home, reported left ankle pain, twisting injury reported. +Swelling in triage. Alert and oriented x 3 documented in this encounter Plan of Treatment Scheduled Referrals Name Type Priority Associated Diagnoses Order Schedule Ambulatory referral to Orthopedic Outpatient Referral Routine 1 Occurrence s starting 12/02/2024 until 12/02/2025 documented as of this encounter Procedures Procedure Name Priority Date/Time Associated Diagnosis Comments XR FOOT 3+ VIEWS LEFT STAT 12/01/2024 9:52 PM EDT XR ANKLE 3+ VIEWS LEFT STAT 12/01/2024 9:52 PM EDT documented in this encounter Results * XR Foot 3+ Views Left (12/01/2024 9:52 PM EDT) Anatomical Region Laterality Modality Lower Extremities, Foot [facility] 12/02/2024 9:24 AM EDT Impressions 12/02/2024 9:26 AM EDT The small fracture fragment seen on the accompanying ankle series is not seen on this exam. -------- FINAL REPORT -------- Dictated By: Lavell Brown Dictated Date: 12/02/2024 09:24 ET Assigned Physician: Lavell Brown Reviewed and Electronically Signed By: Lavell Brown Signed Date: 12/02/2024 09:26 ET Workstation ID: [id number] Transcribed By: Self Edit Transcribed Date: 12/02/2024 09:24 ET Narrative 12/02/2024 9:26 AM EDT PROCEDURE: Radiographs of the left foot. HISTORY: pain. COMPARISON: None. FINDINGS: Normal bony mineralization. ??Alignment is normal. ??Small osteophytes at the tibiotalar articulation. ??Small retrocalcaneal enthesophyte. ??The small avulsion fracture fragment seen on the accompanying ankle radiograph is not visible on this study. ??No visible fracture. Procedure Note Lavell Brown MD - 12/02/2024 PROCEDURE: Radiographs of the left foot. HISTORY: pain. COMPARISON: None. FINDINGS: Normal bony mineralization. Alignment is normal. Small osteophytes atthe tibiotalar articulation. Small retrocalcaneal enthesophyte. Thesmall avulsion fracture fragment seen on the accompanying ankle radiographis not visible on this study. No visible fracture. IMPRESSION: The small fracture fragment seen on the accompanying ankle series is notseen on this exam. -------- FINAL REPORT -------- Dictated By: Lavell Brown Dictated Date: 12/02/2024 09:24 ET Assigned Physician: Lavell Brown Reviewed and Electronically Signed By: Lavell Brown Signed Date: 12/02/2024 09:26 ET Workstation ID: [id number] Transcribed By: Self Edit Transcribed Date: 12/02/2024 09:24 ET us Bradly Merino MD IMG XR PROCEDURES Final Res ult * XR Ankle 3+ Views Left (12/01/2024 9:52 PM EDT) Anatomical Region Laterality Modality Lower Extremities, Ankle Left Radiogr [facility] 12/02/2024 9:22 AM EDT Impressions 12/02/2024 9:27 AM EDT Curvilinear bony fragment adjacent to the lateral cuneiform suspicious for an avulsion fracture. Findings were called to the emergency department and were discussed with BHUMI Marx on the morning of 12/02/2024. -------- FINAL REPORT -------- Dictated By: Lavell Brown Dictated Date: 12/02/2024 09:22 ET Assigned Physician: Lavell Brown Reviewed and Electronically Signed By: Lavell Brown Signed Date: 12/02/2024 09:27 ET Workstation ID: [id number] Transcribed By: Self Edit Transcribed Date: 12/02/2024 09:24 ET Narrative 12/02/2024 9:27 AM EDT PROCEDURE: Radiographs of the left ankle. HISTORY: pain. COMPARISON: None. FINDINGS: Bony mineralization is normal. ??There is a thin curvilinear structure adjacent to the lateral cuneiform suggestive of a small avulsion fracture. ??Symmetric mortise. ??Intact talar dome. ??Normal alignment. ??Small retrocalcaneal spur. Small osteophytes at the talonavicular articulation. Procedure Note Lavell Brown MD - 12/02/2024 PROCEDURE: Radiographs of the left ankle. HISTORY: pain. COMPARISON: None. FINDINGS: Bony mineralization is normal. There is a thin curvilinear structureadjacent to the lateral cuneiform suggestive of a small avulsion fracture.Symmetric mortise. Intact talar dome. Normal alignment. Smallretrocalcaneal spur. Small osteophytes at the talonaviculararticulation. IMPRESSION: Curvilinear bony fragment adjacent to the lateral cuneiform suspicious tali avulsion fracture. Findings were called to the emergency department and were discussed withBHUMI Marx on the morning of 12/02/2024. -------- FINAL REPORT -------- Dictated By: Lavell Brown Dictated Date: 12/02/2024 09:22 ET Assigned Physician: Lavell Brown Reviewed and Electronically Signed By: Lavell Brown Signed Date: 12/02/2024 09:27 ET Workstation ID: [id number] Transcribed By: Self Edit Transcribed Date: 12/02/2024 09:24 ET us Bradly Merino MD IMG XR PROCEDURES Final Res ult documented in this encounter Visit Diagnoses Diagnosis Sprain of left ankle, initial encounter- Primary documented in this encounter Administered Medications Inactive Administered Medications - up to 3 most recent administrations Medication Order MAR Action Action Date Dose Rate Site ibuprofen (ADVIL,MOTRIN) tablet 600 mg 600 mg, oral, Once, On Fri12/01/24 at 2347, For 1 dose, Administer with food or milk to decrease GI upset Given 12/01/2024 11:54 PM EDT 600 mg documented in this encounter Discontinued Medications Medication Sig Discontinue Reason Start Date End Da te ibuprofen (ADVIL,MOTRIN) 600 mg tablet Take 1 tablet (600 mg total) by mouth if needed for mild pain for up to 10 days. 12/01/2024 12/01/2024 documented as of this encounter Active and Recently Administered Medications Times are shown in EDT. Scheduled Medication Order 11/30/2024 12/01/2024 12/02/2024 ibuprofen (ADVIL,MOTRIN) tablet 600 mg (COMPLETED) 600 mg, oral, Once, On Fri12/01/24 at 2347, For 1 dose, Administer with food or milk to decrease GI upset 2354 (Given - Provider: Oscar Hart RN) documented in this encounter Orders Medications Ordered That Gautam ht Not Have Been Administered Count Last Ordered Date First Ordered Date ibuprofen (ADVIL,MOTRIN) tablet 600 mg 1 documented in this encounter Care Teams Shingle Shearing Machine Operator Relationship Specialty Start Date End Date Rani Davis MD [address] [place] [address] PCP - General Internal Medicine 12/22/20 documented as of this encounter
--- OUTSIDE RECORDS SUMMARY | 2024-12-02 14:49 | XMS_ITS | Clinical Summary ---
Author Organization [facility] Address [address] [place] [address] Phone Care Team Providers Care Motorbike Courier Name Role Phone Rani Davis MD Primary Care Provider Allergies No known active allergies Medications albuterol HFA (ProAir HFA) 90 mcg/actuation inhaler 2 Active ibuprofen (ADVIL,MOTRIN) 600 mg tablet Take 1 tablet (600 mg total) by mouth if needed for mild pain for up to 10 days. 30 tablet 5 12/12/19 25 Active ibuprofen (ADVIL,MOTRIN) 600 mg tablet Take 1 tablet (600 mg total) by mouth if needed for mild pain for up to 10 days. 30 tablet 5 12/02/19 25 Discontinued Active Problems Problem Noted Date Diagnosed Date Pelvic pain in female 08/31/2024 Obesity (BMI 30-39.9) 08/08/2021 Overview (06/09/2024): Resolved Problems Problem Noted Date Diagnosed Date Resolved Date Dermoid cyst of ovary, right 08/31/2024 09/29/2024 Uterine cyst 08/31/2024 09/29/2024 Encounters Date Type Department Care Team Description 12/01/2024 10:35 PM EDT - 12/02/2024 12:03 AM EDT Emergency [facility] Emergency [address] [place] [address] Sprain of left ankle, initial encounter (Primary Dx) Discharge Disposition: Home or Self Care 10/21/2024 10:20 AM EST Office Visit Obstetrics and Gynecology - [address] [phone] Maria Antonia Del Valle PA Postop check (Primary Dx) 09/29/2024 11:59 PM EST Anesthesia Event Obstetrics and Gynecology - [address] [phone] Tim Turcios MD 09/29/2024 1:00 PM EST - 09/29/2024 3:00 PM EST Surgery [facility] OR [address] [place] [phone] Nadya Gonzalez DO HYSTEROSCOPY W/ENDOMETRIAL RESECTION,DILATION & CURETTAGE [88090 (CPT??)] 09/29/2024 12:56 PM EST Anesthesia Event [facility] OR [address] [place] [phone] Tim Turcios MD Sobo, Kathleen, CRNA 09/29/2024 11:40 AM EST - 09/29/2024 5:48 PM EST Hospital Encounter [facility] OR [address] [place] [phone] Nadya Gonzalez DO Dermoid cyst of ovary, right; Pelvic pain in female; Uterine cyst Discharge Disposition: Home or Self Care 09/22/2024 2:20 PM EST Consult [facility] [address] [place] [address] Maria Antonia Del Valle PA Cyst, ovary, dermoid, right (Primary Dx); Uterine cyst 09/10/2024 Telephone [facility]etrics [facility] [address] [place] [address] Nadya Gonzalez DO from Last 3 Months Immunizations Name Administration Dates Next Due Influenza Quadravalent, MDCK , 0.5ml, preservative free (Flucelvax) 6mo and older 09/22/2019 Pfizer SARS-CoV-2 COVID-19, mRNA, LNP-S, preservative free 06/09/2021 Tdap Tetanus diptheria acell ular pertussis (Boostrix; Adacel) 7yo and older 11/16/2019 Varicella live (Varivax) 12mo and older 02/22/20 22 Surgical History Surgery Date Site/Laterality Comments OTHER SURGICAL HISTORY 09/2018 PROCEDURE: ME DILATION & CURETTAGE DX&/THER NONOBSTETRIC; COMMENT: tab OVARIAN CYST REMOVAL 04/23/2020 Left PROCEDURE: ME OVARIAN CYSTECTOMY UNI/BI; COMMENT: right ovarian cystectomy [...] 02/21/2022 DX:Varicella v accine; COMMENT: rec'd at [facility] after Family History Medical History Relation [...] or Elena 09/23/2024 11 :16 AM EST Obstetrics History Para Term AB IAB SAB [...] Complications: dep ression,Lost custody of children Delivery Location:[facility] Comments:pt just start ed seeing this child every other weekend . he is in the custody of the father 2013 Term 39w 0d 4196 g (148 oz) F Vag-S pont Epidur al N Livin g Caitlin raphael Complications:None,Lost cust andres of children, depression,Cholelithiasis Delivery Location:[facility] Comments:pt has custod y 2015 Term 39w 0d 3175 g (112 oz) M Vag-S pont None N Livin g Spencer Complications: dep ression,Lost custody of children Delivery Location:[facility] Comments:pt has custod y 2016 Term 39w 0d 3558 g (125.5 oz) M Vag-S pont Epidur al N Livin g Donis dyson Complications: dep ression,Lost custody of children Delivery Location:[facility] Comments:pt has custod y 9 IAB 9w0 d Complications:History of refugio gical procedure Delivery Location:[facility] 2019 Term 40w 4d 3600 g (127 oz) F Vag-S pont None Livin g 8 9 Thomas Oakley CNM Complications:Precipitate la bor Delivery Location:[facility] [place] [facility] 2021 Term 38w 4d M Vag-S pont Livin g Dionne crespo CNM Delivery Location:[facility] [place] [facility] Comments:Apg 8-9-9 2023 SAB 6w1 d Last Filed Vital Signs Vital Sign Reading Time Taken Comments Blood Pressure 119/48 12/01/2024 9:41 PM EDT Pulse 87 12/01/2024 9:41 PM EDT Temperature 37 ??C (98.6 ??F) 12/01/2024 9:41 PM EDT Respiratory Rate 16 12/01/2024 9:41 PM EDT Oxygen Saturation 98% 12/01/2024 10: 39 PM EDT Inhaled Oxygen Concentration - - Weight 86.5 kg (190 lb 12.8 oz) 025 10:52 AM EST Height 167.6 cm (5' 6 ) 10/21/2024 10:5 2 AM EST Body Mass Index 30.8 10/21/2024 10:52 AM EST Plan of Treatment Health Maintenance Due Date Last Done Comments Hepatitis B Vaccines (2 of 3 - 19+ 3-dose series) 04/14/2018 03/17/2018 Pneumococcal Vaccine: Pediatrics (0 to 5 Years) and At-Risk Patients (6 to 64 Years) (2 of 2 - PCV) 03/02/2020 03/02/2019 Cholesterol Screening (Lipid Panel) 07/21/2022 Depression Screening 07/21/2022 Social Influencers of Health Screening 07/21/2022 COVID-19 Vaccine ( - 2023-2 5 season) 2024 05/19/2023, 06/09/2021 Influenza Vaccine (Season Ended) 2025 07/17/2020, 09/22/2019 Cervical Cancer Screening: HPV 05/14/2029 05/14/2024 [...] patient's age to complete this topic Meningococcal B Vaccine Aged Out No l onger eligible based on patient's age to complete this topic RSV Immunization Patients Under 20 months Aged Out No longer eligible b ased on patient's age to complete this topic Procedures Procedure Name Priority Date/Time Associated Diagnosis Comments XR FOOT 3+ VIEWS LEFT STAT 12/01/2024 9:52 PM EDT XR ANKLE 3+ VIEWS LEFT STAT 12/01/2024 9:52 PM EDT OXYGEN THERAPY, ADULT Routine 09/29/2024 3:22 PM EST TISSUE EXAM Routine 09/29/2024 1:40 PM EST Dermoid cyst of ovary, right Pelvic pain in female Uterine cyst TH AN ENDOTRACHEAL(NO CHARGE) Routine 09/29/2024 1:19 PM EST ME LAP SURG W FULG/EXC LESIONS OF OVARY PELVIC VISCERA/PERITONEAL SURFACE 09/29/2024 12:55 PM EST Dermoid cyst of ovary, right Pelvic pain in female Uterine cyst Case Notes MOVE TO OR 17 ME HYSTEROSCOPY W/BIOPSY ENDOMETRIUM AND/OR POLYPECTOMY W/O AND/OR W/D&C 09/29/2024 12:55 PM EST Dermoid cyst of ovary, right Pelvic pain in female Uterine cyst Case Notes MOVE TO OR 17 POC , URINE DIAGNOSTIC Routine 09/29/2024 11:54 AM EST CBC WITH AUTO DIFFERENTIAL Routine 09/29/2024 11:53 AM EST TYPE AND SCREEN Routine 09/29/2024 11:53 AM EST CBC AND DIFFERENTIAL Routine 09/29/2024 11:53 AM EST TRICHOMONAS VAGINALIS ANTIGEN Routine 09/22/2024 3:44 PM EST Cyst, ovary, dermoid, right WET PREP, GENITAL Routine 09/22/2024 3:4 4 PM EST Cyst, ovary, dermoid, right CHLAMYDIA TRACHOMATIS AND NEISSERIA GONORRHOEAE PCR Routine 09/22/2024 3:44 PM EST Cyst, ovary, dermoid, right HPV Routine 05/14/2024 HEPATITIS C SCREENING Routine 05/05/2024 HIV SCREENING Routine 05/05/2024 from Last 3 Months or Most Recently Relevant to Health Maintenance Results * XR Foot 3+ Views Left (12/01/2024 9:52 PM EDT) Anatomical Region Laterality Modality Lower Extremities, Foot Left Radiogra phic Imaging 12/02/2024 9:24 AM EDT Impressions 12/02/2024 9:26 AM EDT The small fracture fragment seen on the accompanying ankle series is not seen on this exam. -------- FINAL REPORT -------- Dictated By: Lavell Brown Dictated Date: 12/02/2024 09:24 ET Assigned Physician: Lavell Brown Reviewed and Electronically Signed By: Lavell Brown Signed Date: 12/02/2024 09:26 ET Workstation ID: [id number] Transcribed By: Self Edit Transcribed Date: 12/02/2024 [...] Signed Date: 12/02/2024 09:26 ET Workstation ID: [id number] Transcribed By: Self Edit Transcribed Date: 12/02/2024 [...] Signed Date: 12/02/2024 09:27 ET Workstation ID: [id number] Transcribed By: Self Edit Transcribed Date: 12/02/2024 [...] Signed Date: 12/02/2024 09:27 ET Workstation ID: [id number] Transcribed By: Self Edit Transcribed Date: 12/02/2024 09:24 ET us Bradly Merino MD IMG XR PROCEDURES Final Res ult * Tissue exam (09/29/2024 1:40 PM EST) Final Diagnosis A. Endometrial curettings: Secretory endometrium with breakdown No endometrial polyp, hyperplasia or neoplasm identified B. Right ovary, cyst excision: Mature teratoma 09/30/2024 9:21 AM EST [facility] Gross Description A. Endometrium, EMC: Labeled EMC . Received in formalin on Telfa pads is a 4.3 x 2.9 x 0.3 cm aggregate of irregular pink-red soft tissue fragments admixed with clotted blood which is submitted in toto in mesh bags in two cassettes, multiple pieces each, x 2. B. Ovary, Right, dermoid cyst: Labeled dermoid, ovary R . Received in formalin with a Telfa pad is a 2.1 x 1.8 x 0.5 cm previously disrupted cyst containing hair and a minimal sebaceous debris. The external surface is pink-white, smooth and glistening. The cyst lining is collins-white and hairbearing with a 0.3 cm firm nodule. No residual ovarian parenchyma is identified. Blanket Binder sections are submitted into cassettes, two pieces each. BELA 09/30/2024 9:21 AM EST [facility] Disclaimer Unless otherwise specified, all tissue is 10% NB formalin fixed and paraffin embedded. 09/30/2024 9:21 AM EST [facility] Tissue Endometrial structure / Unknown 09/29/2024 1:40 PM EST 09/29/2024 3:57 PM EST Tissue specimen (specimen) Structure of right ovary / Unknown 09/29/2024 2:57 PM EST 09/29/2024 3:57 PM EST us Nadya Gonzalez DO LAB PATHOLOGY ORDERABLES Melodie dyson Result [facility] [address] [place] [address], * TH AN ENDOTRACHEAL(NO CHARGE) (09/29/2024 1:19 PM EST) Narrative Karie Britt CRNA - 09/29/2024 1:19 PM EST Karie Britt CRNA ? 09/29/2024 ??1:21 PM General Information and Staff Patient location during procedure: OR Performed by: Karie Britt CRNA Authorized by: Benson Gutierrez MD ?? Intubation Urgency: elective Final Airway Details Successful airway: ETT Cuffed: yes Successful intubation technique: direct laryngoscopy Facilitating devices/methods: intubating stylet Endotracheal tube insertion site: oral Blade: Umair ETT size (mm): 7.5 Cormack-Lehane Classification: grade I - full view of glottis Placement verified by: chest auscultation and capnometry Measured from: teeth ETT to teeth (cm): 22 Number of attempts at approach: 1Final airway type: endotracheal airway Indications and Patient Condition Indications for airway management: anesthesia Spontaneous Ventilation: absent Preoxygenated: yes Soft Tissue Damage: No Dentition Unchanged: Yes Patient position: sniffing MILS maintained throughout Mask difficulty assessment: 1 - vent by mask Benson Gutierrez MD ANESTHESIA ORDERABLES Final R esult * POC , urine manually resulted (09/29/2024 11:54 AM EST) Pathologist [facility] HCG, Ur POC Negative Negative POC hCG Int QC Pass? Yes Yes Urine Urine specimen obtained by clean catch procedure / Unknown 09/29/2024 11:54 AM EST Nadya Gonzalez DO POINT OF CARE TEST ENTER/EDIT ORDERABLES Final Result * CBC auto differential (09/29/2024 11:53 AM EST) [facility] WBC 7.0 4.8 - 10.8 K/mcL LAB HEMETOLOGY METHOD 09/29/2024 12:15 PM [facility] RBC 4.10 3.80 - 4.80 [facility] LAB HEMETOLOGY METHOD 09/29/2024 12:15 PM [facility] Hemoglobin 12.2 11.5 - 16.0 g/dL LAB HEMETOLOGY METHOD 09/29/2024 12:15 PM [facility] Hematocrit 36.9 35.0 - 47.0 % LAB HEMETOLOGY METHOD 09/29/2024 12:15 PM [facility] MCV 90.7 79.0 - 98.0 FL LAB HEMETOLOGY METHOD 09/29/2024 12:15 PM [facility] MCH 30.0 27.0 - 32.0 pcg LAB HEMETOLOGY METHOD 09/29/2024 12:15 PM [facility] MCHC 33.1 32.0 - 37.0 g/dL LAB HEMETOLOGY METHOD 09/29/2024 12:15 PM [facility] RDW 12.3 11.0 - 15.0 % LAB HEMETOLOGY METHOD 09/29/2024 12:15 PM [facility] Platelets 281 130 - 400 K/mcL LAB HEMETOLOGY METHOD 09/29/2024 12:15 PM [facility] MPV 9.5 7.0 - 11.0 FL LAB HEMETOLOGY METHOD 09/29/2024 12:15 PM [facility] NRBC 0.0 <1.0 % LAB HEMETOLOGY METHOD 09/29/2024 12:15 PM [facility] NRBC Absolute 0.00 <0.10 K/mcL LAB HEMETOLOGY METHOD 09/29/2024 12:15 PM [facility] Neutrophils Relative 66.4 % LAB HEMETOLOGY METHOD 09/29/2024 12:15 PM [facility] Lymphocytes Relative 24.0 % LAB HEMETOLOGY METHOD 09/29/2024 12:15 PM [facility] Monocytes Relative 6.5 % LAB HEMETOLOGY METHOD 09/29/2024 12:15 PM [facility] Eosinophils Relative 2.7 % LAB HEMETOLOGY METHOD 09/29/2024 12:15 PM [facility] Basophils Relative 0.1 % LAB HEMETOLOGY METHOD 09/29/2024 12:15 PM [facility] Immature Granulocytes Relative 0.3 % LAB HEMETOLOGY METHOD 09/29/2024 12:15 PM [facility] Neutrophils Absolute 4.63 1.50 - 7.00 K/mcL LAB HEMETOLOGY METHOD 09/29/2024 12:15 PM [facility] Lymphocytes Absolute 1.67 1.00 - 5.00 K/mcL LAB HEMETOLOGY METHOD 09/29/2024 12:15 PM [facility] Monocytes Absolute 0.45 0.20 - 1.00 K/mcL LAB HEMETOLOGY METHOD 09/29/2024 12:15 PM [facility] Eosinophils Absolute 0.19 0.00 - 0.50 [facility] HEMETOLOGY METHOD 09/29/2024 12:15 PM EST [facility] Basophils Absolute 0.01 0.00 - 0.20 [facility] LAB HEMETOLOGY METHOD 09/29/2024 12:15 PM EST [facility] Immature Granulocytes Absolute 0.02 0.00 - 0.03 [facility] LAB HEMETOLOGY METHOD 09/29/2024 12:15 PM EST [facility] Blood Venous blood specimen / Unknown Venipuncture / Unknown 09/29/2024 11:53 AM EST 09/29/2024 12:01 PM EST Nadya Gonzalez LAB BLOOD ORDERABLES Final Re sult [facility] [address] [place] [address], [place] [phone] * Type and screen (09/29/2024 11:53 AM EST) ABO Group A 09/29/2024 1:00 PM EST [facility] Rh Type Positive 09/29/2024 1:00 PM EST [facility] Antibody Screen Negative 09/29/2024 1:00 PM EST [facility] Blood Venous blood specimen / Unknown Venipuncture / Unknown 09/29/2024 11:53 AM EST 09/29/2024 12:01 PM EST Nadya Gonzalez [facility] BLOOD BANK TEST ORDERABLE S Final Result [facility] [address] [place] [address], [place] [phone] * Trichomonas vaginalis antigen (09/22/2024 3:44 PM EST) Trichomonas vaginalis 09/23/2024 12:45 PM EST [facility] Comment:Corrected result: Pr eviously reported as Negative on 09/22/2024 at 1929 EST. Swab Vaginal structure / Unknown Non-blood Collection / Unknown 09/22/2024 3:44 PM EST 09/22/2024 3:44 PM EST Narrative [facility] - 09/23/2024 12:45 PM EST Per Fabrizio Cantper, spec not collected, user states error us Maria Antonia TRIPATHI LAB MICROBIOLOGY - GENERAL O RDERABLES Edited Result - Final Performing Organization Address [facility]/ZIP Co de Phone Number [facility] [address] [place] [address], [place] [phone] * Chlamydia trachomatis and Neisseria gonorrhoeae molecular study (09/22/2024 3:44 PM EST) Neisseria gonorrhoeae PCR Negative Negative LAB MOLECULAR DIAGNOSTICS METHOD 09/23/2024 11:14 AM EST [facility] Chlamydia trachomatis PCR Negative Negative LAB MOLECULAR DIAGNOSTICS METHOD 09/23/2024 11:14 AM EST [facility] Swab Vaginal structure / Unknown Non-blood Collection / Unknown 09/22/2024 3:44 PM EST 09/22/2024 3:44 PM EST Maria Antonia TRIPATHI LAB MICROBIOLOGY - GENERAL O RDERABLES Final Result [facility] [address] [place] [address], [place] [phone] * Wet prep, genital (09/22/2024 3:44 PM EST) Clue Cells, Wet Prep 09/23/2024 12:44 PM EST [facility] Comment:Corrected result: Pr eviously reported as Positive on 09/22/2024 at 1920 EST. Yeast, Wet Prep 12:44 PM EST [facility] Comment:Corrected result: Pr eviously reported as Negative on 09/22/2024 at 1920 EST. Trichomonas, Wet Prep 09/23/2024 12:44 PM EST [facility] Comment:Corrected result: Pr eviously reported as Indeterminate on 09/22/2024 at 1920 EST. Swab Vaginal structure / Unknown Non-blood Collection / Unknown 09/22/2024 3:44 PM EST 09/22/2024 3:44 PM EST Narrative [facility] - 09/23/2024 12:44 PM EST Per Fabrizio Daniels, spec not collected, user states error Maria Antonia TRIPATHI LAB MICROBIOLOGY - GENERAL O RDERABLES Edited Result - Final [facility] [address] [place] [address], * Cervical Cancer Screening: HPV (05/14/2024) Pathologist [facility] Cervical Cancer Screening: HPV Negative, Abstracted [facility] Provider HEALTH MAINTENANCE Final Result * HIV Screening (05/05/2024) Pathologist [facility] HIV Screening Abstracted Historical Provider HEALTH MAINTENANCE Final Result * Hepatitis C Screening (05/05/2024) Pathologist [facility] Hepatitis C Screening Abstracted Historical Provider HEALTH MAINTENANCE Final Result from Last 3 Months or Most Recently Relevant to Health Maintenance Insurance [id number] [place] [address] HEALTH PLAN Advance Directives * Full Code - Default (Latest Code Status on File) Date Activated Date Inactivated Comments 09/29/2024 3:22 PM 09/29/2024 7:48 PM This is orde r is used when code status has not been discussed with the patient, or code status is otherwise unknown/unconfirmed To update the patient's code status, place a code status order. Do not modify or discontinue any currently active code status orders. Care Teams Motorbike Courier Relationship Specialty Start Date End Date Rani Davis MD [address] [place] [address] PCP - General Internal Medicine 12/22/20
[2024-12-03 06:28] LABS: Mumps Virus IgG Antibody <9.00 AU/mL; Rubella IgG Antibody 1.49 Index
[2024-12-03 08:03] LABS: HBS Num1 88.93 mIU/mL (0-7.99); ~Hepatitis B Surface Antibody REACTIVE (Nonreactive)
[2024-12-04 22:34] LABS: TS Negative Control Passed; TS Panel A 0; TS Panel B 0; TS Positive Control Passed; TSpotTB Negative (Negative)
== END 2024-12-02 11:49 | disposition home or self-care (01) ==
LOC: HO.HMGCX 11:48
PROVIDERS: PCP Internal Medicine; Referring Provider Nurse Practitioner Family; Visit Provider Internal Medicine
DX: M25.572 Pain in left ankle and joints of left foot (principal); Z11.1 Encounter for screening for respiratory tuberculosis; Z78.9 Other specified health status
CPT/HCPCS: 36415; 73610; 86481; 86706; 86735; 86762; 86765; 99212

== ENCOUNTER 2024-12-02 12:01 | Outpatient (AMB) | payer OTHER, SELFPAY ==
--- NOTE | 2024-12-02 12:43 | MHC.OFFWIV ---
Intake Vital Signs 12/02/24 12:55 BP 124/80 Blood Pressure Location Lt brachial Position Sitting Pulse 89 Pulse Source Pulse Oximeter Pulse Oximetry (%) 99 Oxygen Delivery Method Room Air Intake Visit Reasons: EP Pain from broken/ fractured ankle Intake Note: Patient here for left foot and ankle avulsion fracture. she went to [facility] Patient Tobacco Use Status: Current everyday Tobacco user Allergies No Known Allergies Allergy (Verified 12/02/24 12:54) HPI HPI Comments History of Present Illness Details 29 y/o Female Patient who presents to the walk in clinic with c/o left Ankle Pain and swelling. Pt Twisted her Ankle yesterday while walking towards her Vehicle. She was seen and evaluated at [facility] and Xrays of the Ankle showed an Avulsion Fracture per Patient. Unable to Obtain ED Notes from [facility]. Pt reports that she was discharged home and told to Take Ibuprofen for pain relief. Pt was called back this morning and informed of the Xray results. Pt was given Ortho Boot and crutches to use. Pt asking for Stronger Pain medications due to pain level. [facility] Medical History (Updated 12/02/24 @ 13:35 by Dominique Alejandro NP) Left ankle pain Reactive airway disease Anxiety and depression Hair thinning Palpable thyroid Fatigue Tubal ligation evaluation Rash Papanicolaou smear of cervix within last year Obesity Vitamin D deficiency Mixed dyslipidemia Surgical History No pertinent past surgical history Family History Father No problems noted. Mother No problems noted. Brother No problems noted. Sister No problems noted. Sister No problems noted. Social History Housing: Apartment Alcohol intake: never Patient Tobacco Use Status: Current everyday Tobacco user Cigarette Packs Per Day: 1 e-Cigarette/Vaping Use: Never Used Current occupational status: unemployed Cognitive needs: No Hearing needs: No Vision needs: Yes Review of Systems Const All systems reviewed & are unremarkable except as noted in HPI and below Physical Exam Vital Signs: Last Vital Signs Pulse 89 12/02/24 12:55 BP 124/80 12/02/24 12:55 Pulse Ox 99 12/02/24 12:55 Oxygen Delivery Method Room Air 12/02/24 12:55 Const General: no acute distress; No comfortable Nutritional Appearance: overweight Orientation/consciousness: patient oriented x3 Limitations: crutches Neuro Other: Walks with a Limp due to pain. Using Crutches. General: patient oriented x3 and moves all extremities Extrem Left lower extremity: ankle (Ortho boot on) Details: tenderness Location: of the lateral malleolus and of the medial malleolus, swelling Details: diffusely and abnormal ROM Details: pain with active ROM and pain with passive ROM; no crepitus Psych Speech and movement: Normal speech and movement present Assessment & Plan Assessment & Plan (1) Left ankle pain: Code(s): M25.572 - Pain in left ankle and joints of left foot Qualifiers: Chronicity: acute Qualified Code(s): M25.572 - Pain in left ankle and joints of left foot Plan: Will repeat Xrays here. Ordered Ankle Xray Ordered Tramadol for pain relief. Ice/Hot NSAIDs and Acetaminophen for pain relief. Orders: Orders XR ankle LT min 3V Today M25.572 - Pain in left ankle and joints of left foot Medications: New acetaminophen 1,000 mg (2 x 500 mg) PO Q6H PRN 30 caps 0RF pain M25.572 - Pain in left ankle and joints of left foot tramadol 50 mg PO Q6H PRN 14 tabs 0RF pain M25.572 - Pain in left ankle and joints of left foot ibuprofen 800 mg PO Q8H 30 tabs 0RF M25.572 - Pain in left ankle and joints of left foot Coding Level of Care Code Est Pt Level 4 (80766) Diagnoses Acute left ankle pain M25.572 Chronicity: acute Time Spent (min) 20
[2024-12-02 12:55] VITALS: BP 124/80; PULSE 89; O2SAT 99
== END 2024-12-02 13:33 | disposition home or self-care (01) ==
PROVIDERS: PCP Internal Medicine; Visit Provider Nurse Practitioner Family
DX: M25.572 Pain in left ankle and joints of left foot (principal)

== ENCOUNTER → 2024-12-02 13:37 | Outpatient (BNV) | payer OTHER, SELFPAY | PROVIDERS: PCP Internal Medicine; Referring Provider Nurse Practitioner Family; Visit Provider Radiology Diagnostic Radiology | DX: M25.572 Pain in left ankle and joints of left foot (principal) | CPT/HCPCS: 73610 ==

== ENCOUNTER 2024-12-07 14:25 | Outpatient (AMB) | payer OTHER, SELFPAY ==
--- NOTE | 2024-12-07 14:39 | AM.OFFVISNUR ---
Intake Visit Reasons: MMR vaccine Allergies No Known Allergies Allergy (Verified 12/02/24 12:54) Nursing Note Pt came into the office, vaccinated with MMR to left deltoid. Pt tolerated well. Immunizations M-M-R II (PF) 1,000-12,500 TCID50/0.5 mL subcutaneous solution Performing Provider: Rani Davis MD Performing Location: [facility] Administered by: Emily Mejia on 12/07/24 14:40 Dose Route Admin Location Dispensed Lot Number Expiration Date [facility] [employer] [place] 0.5 mL subcut Left Arm 0.5 mL [id number] 09/29/25 5109-9271-19 [employer] D VIS Given Date VIS Provided VIS Publication Date 12/07/24 Single Vaccine 21 Eligibility Eligibility Date Funding Source Not [facility] Eligible 12/07/24 Private Assessment & Plan Assessment & Plan Orders: Orders MMR Immunization Today Z23 - Encounter for immunization Medications: New M-M-R II (PF) (measles,mumps,rubella vacc(PF)) 0.5 mL subcut ONCE 1 ea 0RF NS Z23 - Encounter for immunization Coding
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
--- OUTSIDE RECORDS SUMMARY | 2024-12-07 17:16 | XMS_ITS | Encounter Summary ---
Author Organization [facility] Address [address] [place] [address] Care Team Providers Care Mine Engineering Supervisor Name Role Phone Rani Davis MD Primary Care Provider Encounter Details Date Type Department Care Team (Late st Contact Info) Description 12/07/2024 7:35 AM EDT Hospital Encounter [facility] Ortho Xray [address] [place] [address] Pain Social History Tobacco Use Types Packs/Day Years Used Date Smoking Tobacco: Every Day Cigarettes Smokeless Tobacco: Never Alcohol Use Standard Drinks/Week Comments Yes 0 [...] AM EST documented as of this encounter Plan of Treatment Scheduled Orders Name Type Priority Associated Diagnoses Orde r Schedule XR Ankle 3+ Views Left Imaging Routine Pain Once for 1 Occurrences starting 12/07/2024 until 12/07/2024 documented as of this encounter Visit Diagnoses Diagnosis Pain Generalized pain documented in this encounter Care Teams Mine Engineering Supervisor Relationship Specialty Start Date End Date Rani Davis MD [address] [place] [address] PCP - General Internal Medicine 12/22/20 documented as of this encounter
--- OUTSIDE RECORDS SUMMARY | 2024-12-07 17:16 | XMS_ITS | Clinical Summary ---
Author Organization [facility] Address [address] [place] [address] Phone Care Team Providers Care Automation Developer Name Role Phone Rani Davis MD Primary [...] Encounters Date Type Department Care Team Description 12/07/2024 7:35 AM EDT Hospital Encounter [facility] Ortho Xray [address] [place] [address] Pain 12/01/2024 10:35 PM EDT - 12/02/2024 12:03 AM EDT Emergency [facility] Emergency [address] [place] [address] Sprain of left ankle, initial encounter (Primary Dx) Discharge Disposition: Home or Self Care 10/21/2024 10:20 AM EST Office Visit Obstetrics and Gynecology - [address] [phone] Maria Antonia Del Valle PA Postop check (Primary Dx) 09/29/2024 11:59 PM EST Anesthesia Event Obstetrics and Gynecology - [address] [phone] Tim Turcios MD 09/29/2024 1:00 PM EST - 09/29/2024 3:00 PM EST Surgery [facility] OR [address] [place] [phone] Nadya Gonzalez DO HYSTEROSCOPY W/ENDOMETRIAL RESECTION,DILATION & CURETTAGE [02162 (CPT??)] 09/29/2024 12:56 PM EST Anesthesia Event [facility] OR [address] [place] [phone] Tim Turcios MD Sobo, Kathleen, CRNA 09/29/2024 11:40 AM EST - 09/29/2024 5:48 PM EST Hospital Encounter [facility] OR [address] [place] [phone] Nadya Gonzalez DO Dermoid cyst of ovary, right; Pelvic pain in female; Uterine cyst Discharge Disposition: Home or Self Care 09/22/2024 2:20 PM EST Consult [facility] - [facility] [address] [place], [place] [phone] Maria Antonia Del Valle PA Cyst, ovary, dermoid, right (Primary Dx); Uterine cyst 09/10/2024 Telephone Obstetrics [facility] Gynecology - [facility] [address] [place], [place] [phone] Nadya Gonzalez DO from Last 3 Months [...] Site/Laterality Comments OTHER SURGICAL HISTORY 09/2018 PROCEDURE: FL DILATION & CURETTAGE DX&/THER NONOBSTETRIC; COMMENT: tab OVARIAN CYST REMOVAL 04/23/2020 Left PROCEDURE: FL OVARIAN CYSTECTOMY UNI/BI; COMMENT: right ovarian cystectomy [...] 02/21/2022 DX:Varicella v accine; COMMENT: rec'd at [facility] after Family History Medical History Relation Name [...] M Vag-S pont Epidur al Livin g [place] Complications: dep ression,Lost custody of children Delivery Location:[facility] Comments:pt just start ed seeing this child every other weekend . he is in the custody of the father 2013 Term 39w 0d 4196 g (148 oz) F Vag-S pont Epidur al N Livin g Samari a Complications:None,Lost cust andres of children, depression,Cholelithiasis Delivery [...] dep ression,Lost custody of children Delivery Location:[facility] Comments:pt has custod y 9 IAB 9w0 d Complications:History of refugio gical procedure Delivery Location:planned pa renthood 2019 Term 40w 4d 3600 g (127 oz) F Vag-S pont None Livin g 8 9 Thomas Oakley CNM Complications:Precipitate la bor Delivery Location:[facility] 2021 Term 38w 4d M Vag-S pont Livin g Dionne crespo CNM Delivery Location:[facility] Comments:Apg 8-9-9 2023 SAB 6w1 d Last [...] ENDOTRACHEAL(NO CHARGE) Routine 09/29/2024 1:19 PM EST FL LAP SURG W FULG/EXC LESIONS OF OVARY PELVIC VISCERA/PERITONEAL SURFACE 09/29/2024 12:55 PM EST Dermoid cyst of ovary, right Pelvic pain in female Uterine cyst Case Notes MOVE TO OR 17 [place] HYSTEROSCOPY W/BIOPSY ENDOMETRIUM AND/OR POLYPECTOMY W/O AND/OR [...] 3:44 PM EST Cyst, ovary, dermoid, right HM HPV Routine 05/14/2024 HEPATITIS C SCREENING Routine 05/05/2024 HM HIV SCREENING Routine 05/05/2024 from Last 3 [...] Signed Date: 12/02/2024 09:26 ET Workstation ID: [id number] Transcribed By: Self Edit Transcribed Date: 12/02/2024 [...] Signed Date: 12/02/2024 09:26 ET Workstation ID: [id number] Transcribed By: Self Edit Transcribed Date: 12/02/2024 [...] Signed Date: 12/02/2024 09:27 ET Workstation ID: [id number] Transcribed By: Self Edit Transcribed Date: 12/02/2024 [...] Signed Date: 12/02/2024 09:27 ET Workstation ID: [id number] Transcribed By: Self Edit Transcribed Date: 12/02/2024 09:24 ET us Bradly Merino MD IMG XR PROCEDURES Final Res ult * Tissue exam (09/29/2024 1:40 PM EST) Final Diagnosis A. Endometrial curettings: Secretory endometrium with breakdown No endometrial polyp, hyperplasia or neoplasm identified B. Right ovary, cyst excision: Mature teratoma 09/30/2024 9:21 AM EST [facility] Gross Description A. Endometrium, EMC: Labeled [...] nodule. No residual ovarian parenchyma is identified. Scientific Advisor sections are submitted into cassettes, two pieces each. BELA 09/30/2024 9:21 AM EST [facility] Disclaimer Unless otherwise specified, all tissue is 10% NB formalin fixed and paraffin embedded. 09/30/2024 9:21 AM EST [facility] Tissue Endometrial structure / Unknown 09/29/2024 1:40 PM EST 09/29/2024 3:57 PM EST Tissue specimen (specimen) Structure of right ovary / Unknown 09/29/2024 2:57 PM EST 09/29/2024 3:57 PM EST Nadya Gonzalez DO LAB PATHOLOGY ORDERABLES Melodie dyson Result [facility] [address] [place] [address], * TH AN ENDOTRACHEAL(NO CHARGE) (09/29/2024 1:19 PM EST) Narrative Karie Britt CRNA - 09/29/2024 1:19 PM EST Karie Britt CRNA ? 09/29/2024 ??1:21 PM General Information and Staff Patient location during procedure: OR Performed by: Karie Birtt CRNA Authorized by: Benson Gutierrez MD ?? [...] urine manually resulted (09/29/2024 11:54 AM EST) HCG, Ur POC Negative Negative POC hCG Int QC Pass? Yes Yes Urine Urine specimen obtained by clean catch procedure / Unknown 09/29/2024 11:54 AM EST Nadya Gonzalez DO POINT OF CARE TEST ENTER/EDIT ORDERABLES Final Result * CBC auto differential (09/29/2024 11:53 AM EST) Pathologist [facility] WBC 7.0 4.8 - 10.8 K/mcL LAB HEMETOLOGY METHOD 09/29/2024 12:15 PM [facility] RBC 4.10 3.80 - 4.80 M/mcL LAB HEMETOLOGY METHOD 09/29/2024 12:15 PM [facility] Hemoglobin 12.2 11.5 - 16.0 g/dL LAB HEMETOLOGY METHOD 09/29/2024 12:15 PM [facility] Hematocrit 36.9 35.0 - 47.0 % LAB HEMETOLOGY METHOD 09/29/2024 12:15 PM [facility] MCV 90.7 79.0 - 98.0 FL LAB HEMETOLOGY METHOD 09/29/2024 12:15 PM [facility] MCH 30.0 27.0 - 32.0 pcg LAB HEMETOLOGY METHOD 09/29/2024 12:15 PM [facility] MCHC 33.1 32.0 - 37.0 g/dL LAB HEMETOLOGY METHOD 09/29/2024 12:15 PM [facility] RDW 12.3 11.0 - 15.0 % LAB HEMETOLOGY METHOD 09/29/2024 12:15 PM [facility] Platelets 281 130 - 400 K/mcL LAB HEMETOLOGY METHOD 09/29/2024 12:15 PM [facility] MPV 9.5 7.0 - 11.0 FL LAB HEMETOLOGY METHOD 09/29/2024 12:15 PM [facility] NRBC 0.0 <1.0 % LAB HEMETOLOGY METHOD 09/29/2024 12:15 PM [facility] NRBC Absolute 0.00 <0.10 K/mcL LAB HEMETOLOGY METHOD 09/29/2024 12:15 PM [facility] Neutrophils Relative 66.4 % LAB HEMETOLOGY METHOD 09/29/2024 12:15 PM [facility] Lymphocytes Relative 24.0 % LAB HEMETOLOGY METHOD 09/29/2024 12:15 PM [facility] Monocytes Relative 6.5 % LAB HEMETOLOGY METHOD 09/29/2024 12:15 PM [facility] Eosinophils Relative 2.7 % LAB HEMETOLOGY METHOD 09/29/2024 12:15 PM [facility] Basophils Relative 0.1 % LAB HEMETOLOGY METHOD 09/29/2024 12:15 PM [facility] Immature Granulocytes Relative 0.3 % LAB HEMETOLOGY METHOD 09/29/2024 12:15 PM [facility] Neutrophils Absolute 4.63 1.50 - 7.00 K/mcL LAB HEMETOLOGY METHOD 09/29/2024 12:15 PM [facility] Lymphocytes Absolute 1.67 1.00 - 5.00 K/mcL LAB HEMETOLOGY METHOD 09/29/2024 12:15 PM [facility] Monocytes Absolute 0.45 0.20 - 1.00 K/mcL LAB HEMETOLOGY METHOD 09/29/2024 12:15 PM EST [facility] Eosinophils Absolute 0.19 0.00 - 0.50 K/[facility] LAB HEMETOLOGY METHOD 09/29/2024 12:15 PM EST [facility] Basophils Absolute 0.01 0.00 - 0.20 K/[facility] LAB HEMETOLOGY METHOD 09/29/2024 12:15 PM EST [facility] Immature Granulocytes Absolute 0.02 0.00 - 0.03 K/[facility] LAB HEMETOLOGY METHOD 09/29/2024 12:15 PM EST [facility] Blood Venous blood specimen / Unknown Venipuncture / Unknown 09/29/2024 11:53 AM EST 09/29/2024 12:01 PM EST Nadya Gonzalez LAB BLOOD ORDERABLES Final Re sult [facility] [address] [place] [address], [place] [phone] * Type and screen (09/29/2024 11:53 AM EST) ABO Group A 09/29/2024 1:00 PM EST [facility] Rh Type Positive 09/29/2024 1:00 PM EST [facility] Antibody Screen Negative 09/29/2024 1:00 PM EST [facility] Blood Venous blood specimen / Unknown Venipuncture / Unknown 09/29/2024 11:53 AM EST 09/29/2024 12:01 PM EST Nadya Gonzalez [facility] BLOOD BANK TEST ORDERABLE S Final Result [facility] [address] [place] [address], [place] [phone] * Trichomonas vaginalis antigen (09/22/2024 3:44 PM EST) Trichomonas vaginalis 09/23/2024 12:45 PM EST [facility] Comment:Corrected result: Pr eviously reported as Negative on 09/22/2024 at 1929 EST. Swab Vaginal structure / Unknown Non-blood Collection / Unknown 09/22/2024 3:44 PM EST 09/22/2024 3:44 PM EST Narrative [facility] - 09/23/2024 12:45 PM EST Per L. Cantres, spec not collected, user states error us Maria Antonia TRIPATHI LAB MICROBIOLOGY - GENERAL O RDERABLES Edited Result - Final Performing Organization Address City/[facility]/ZIP Co de Phone Number [facility] [address] [place] [address], * Chlamydia trachomatis and Neisseria gonorrhoeae molecular study (09/22/2024 3:44 PM EST) Neisseria gonorrhoeae PCR Negative Negative LAB MOLECULAR DIAGNOSTICS METHOD 09/23/2024 11:14 AM EST [facility] Chlamydia trachomatis PCR Negative Negative LAB MOLECULAR DIAGNOSTICS METHOD 09/23/2024 11:14 AM EST [facility] Swab Vaginal structure / Unknown Non-blood Collection / Unknown 09/22/2024 3:44 PM EST 09/22/2024 3:44 PM EST us Maria Antonia TRIPATHI LAB MICROBIOLOGY - GENERAL O RDERABLES Final Result [facility] [address] [place] [address], [place] [phone] * Wet prep, genital (09/22/2024 3:44 PM EST) Clue Cells, Wet Prep 09/23/2024 12:44 PM EST [facility] Comment:Corrected result: Pr eviously reported as Positive on 09/22/2024 at 1920 EST. Yeast, Wet Prep 12:44 PM EST [facility] Comment:Corrected result: Pr eviously reported as Negative on 09/22/2024 at 1920 EST. Trichomonas, Wet Prep 09/23/2024 12:44 PM EST [facility] Comment:Corrected result: Pr eviously reported as Indeterminate on 09/22/2024 at 1920 EST. Swab Vaginal structure / Unknown Non-blood Collection / Unknown 09/22/2024 3:44 PM EST 09/22/2024 3:44 PM EST Narrative [facility] - 09/23/2024 12:44 PM EST Per Fabrizio Daniels, spec not collected, user states error Maria Antonia TRIPATHI LAB MICROBIOLOGY - GENERAL O RDERABLES Edited Result - Final [facility] [address] [place] [address], * Cervical Cancer Screening: HPV (05/14/2024) [facility] Cervical Cancer Screening: HPV Negative, Abstracted Historical Provider HEALTH MAINTENANCE Final Result * HIV Screening (05/05/2024) [facility] HIV Screening Abstracted Historical Provider HEALTH MAINTENANCE Final Result * Hepatitis C Screening (05/05/2024) [facility] Hepatitis C Screening Abstracted Historical Provider HEALTH MAINTENANCE Final Result from Last 3 Months or Most Recently Relevant to Health Maintenance Insurance [facility] Advance Directives * Full Code - Default [...] currently active code status orders. Care Teams Automation Developer Relationship Specialty Start Date End Date Rani Davis MD [address] [place] [address] PCP - General Internal Medicine 12/22/20
== END 2024-12-07 14:47 | disposition home or self-care (01) ==
LOC: HO.HMCC 14:25
PROVIDERS: PCP Internal Medicine; Visit Provider Internal Medicine
DX: Z23 Encounter for immunization (principal)

== ENCOUNTER → 2024-12-07 14:25 | Outpatient (BNVA) | payer OTHER, SELFPAY | PROVIDERS: PCP Internal Medicine; Visit Provider Internal Medicine | DX: Z23 Encounter for immunization (principal) | CPT/HCPCS: 90471; 90707 ==

== ENCOUNTER 2024-12-20 22:20 | Emergency (ER) | payer OTHER, SELFPAY ==
[2024-12-20 22:22] VITALS: BP 112/66; PULSE 90; RESP 16; TEMP 36.7; O2SAT 100; BMI 35.0
== END 2024-12-21 01:35 | disposition left against medical advice (07) ==
PROVIDERS: Emergency Provider Emergency Medicine; PCP Internal Medicine
DX: S61.216A Laceration without foreign body of right little finger without damage to nail, initial encounter (principal); W26.0XXA Contact with knife, initial encounter; Y93.G1 Activity, food preparation and clean up; Y92.000 Kitchen of unspecified non-institutional (private) residence as the place of occurrence of the external cause; Y99.9 Unspecified external cause status; Z53.21 Procedure and treatment not carried out due to patient leaving prior to being seen by health care provider
CPT/HCPCS: 99212; 99281

== ENCOUNTER 2024-12-21 10:22 | Outpatient (AMB) | payer OTHER, SELFPAY ==
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
[2024-12-21 10:42] VITALS: BP 114/68; PULSE 93; O2SAT 98
--- OUTSIDE RECORDS SUMMARY | 2024-12-21 11:51 | XMS_ITS | Encounter Summary ---
Author Organization [facility] Address [address] [place] [address] Care Team Providers Care Loan Services Professional Name Role Phone Rani Davis MD Primary Care Provider [phone] Reason for Visit * Reason Onset Date Comments Confirmation 12/20/2024 Encounter Details Date Type Department Care Team (Late st Contact Info) Description 12/20/2024 Telephone Obstetrics & Gynecology - [address] [phone] Ankita Reyes, [facility] [address] [place] [address] Confirmation Social History Tobacco Use Types Packs/Day Years [...] AM EST documented as of this encounter Progress Notes * Maribell Orellana RN - 12/20/2024 12:56 PM EDT Pt is c/o two weeks of foul vaginal odor , minimal discharge. LMP 11/20/2024 with faint positive. Appt scheduled for further evaluation. [facility] . * Mell Avery - 12/20/2024 10:37 AM EDT Chief Complaint/problem: Pt calling stating she has faint lines on 2 tests, she also has a c/o her ph levels being off. Pt was advised to re-test in 2 weeks. How long has the patient had this problem? N/a Pt???s TEST SKEIN WINDER provider: Ankita Reyes CNM Last menstrual period (LMP) or EDC (due date): n/a documented in this encounter Plan of Treatment Upcoming Encounters Date Type Department Care Team (Late st Contact Info) Description 12/22/2024 10:45 AM EDT Office Visit Obstetrics and Gynecology - [address] [phone] Deepti Hollingsworth, [facility] [address] [place], [place] documented as of this encounter Visit Diagnoses Not on filedocumented in this encounter Care Teams Loan Services Professional Relationship Specialty Start Date End Date Rani Davis MD [address] [place], [place] PCP - General Internal Medicine 12/22/20 documented as of this encounter
--- OUTSIDE RECORDS SUMMARY | 2024-12-21 11:51 | XMS_ITS | Clinical Summary ---
Author Organization [facility] Address [address] [place] [address] Phone Care Team Providers Care Community Marketing Manager Name Role Phone Rani Davis MD Primary Care Provider Allergies No known active allergies Medications albuterol HFA (ProAir HFA) 90 mcg/actuation inhaler 2 Active ibuprofen (ADVIL,MOTRIN) 600 mg tablet Take 1 tablet (600 mg total) by mouth if needed for mild pain for up to 10 days. 30 tablet 5 12/02/19 25 Discontinued ibuprofen (ADVIL,MOTRIN) 600 mg tablet Take 1 tablet (600 mg total) by mouth if needed for mild pain for up to 10 days. 30 tablet 5 12/12/19 25 Active Problems Problem Noted Date Diagnosed Date Pelvic pain in female 08/31/2024 Obesity (BMI 30-39.9) 08/08/2021 Overview (06/09/2024): Resolved Problems Problem Noted Date Diagnosed Date Resolved Date Dermoid cyst of ovary, right 08/31/2024 09/29/2024 Uterine cyst 08/31/2024 09/29/2024 Encounters Date Type Department Care Team Description 12/20/2024 Telephone Obstetrics & Gynecology - [facility] [address] [place] [address] Reyes, Ankita, CNM Confirmation 12/07/2024 7:35 AM EDT - 12/07/2024 11:59 PM EDT Hospital Encounter [facility] Ortho Xray [address] [place] [address] Pain Discharge Disposition: Home or Self Care 12/01/2024 10:35 PM EDT - 12/02/2024 12:03 AM EDT Emergency [facility] Emergency [address] [place] [phone] Sprain of left ankle, initial encounter (Primary Dx) Discharge Disposition: Home or Self Care 10/21/2024 10:20 AM EST Office Visit Obstetrics and Gynecology - [address] [phone] Maria Antonia Del Valle PA Postop check (Primary Dx) 09/29/2024 11:59 PM EST Anesthesia Event Obstetrics and Gynecology - [address] [phone] Tim Turcios MD 09/29/2024 1:00 PM EST - 09/29/2024 3:00 PM EST Surgery [facility] Main OR [address] [place] [address] Nadya Gonzalez, DO HYSTEROSCOPY W/ENDOMETRIAL RESECTION,DILATION & CURETTAGE [[id number] (CPT??)] 09/29/2024 12:56 PM EST Anesthesia Event [facility] OR [address] [place] [phone] Tim Turcios MD Sobo, Kathleen, VIVIAN 09/29/2024 11:40 AM EST - 09/29/2024 5:48 PM EST Hospital Encounter [facility] Main OR [address] [place] [phone] Nadya Gonzalez, Dermoid cyst of ovary, right; Pelvic pain in female; Uterine cyst Discharge Disposition: Home or Self Care from Last 3 Months Immunizations Name Administration Dates Next Due Influenza Quadravalent, MDCK , 0.5ml, preservative free (Flucelvax) 6mo and older 09/22/2019 Pfizer SARS-CoV-2 COVID-19, mRNA, LNP-S, preservative free 06/09/2021 Tdap Tetanus diptheria acell ular pertussis (Boostrix; Adacel) 7yo and older 11/16/2019 Varicella live (Varivax) 12mo and older 02/22/20 22 Surgical History Surgery Date Site/Laterality Comments OTHER SURGICAL HISTORY 09/2018 PROCEDURE: AR DILATION & CURETTAGE DX&/THER NONOBSTETRIC; COMMENT: tab OVARIAN CYST REMOVAL 04/23/2020 Left PROCEDURE: AR OVARIAN CYSTECTOMY UNI/BI; COMMENT: right ovarian cystectomy [...] 02/21/2022 DX:Varicella v accine; COMMENT: rec'd at [facility] after Family History Medical History Relation [...] M Vag-S pont Epidur al N Livin jc dyson Complications: dep ression,Lost custody of children Delivery Location:[facility] Comments:pt has custod y 9 IAB 9w0 d Complications:History of refugio gical procedure Delivery Location:planned [facility] 2019 Term 40w 4d 3600 g (127 oz) F Vag-S pont None Livin g 8 9 Thomas Oakley CNM Complications:Precipitate la bor Delivery Location:[facility] 2021 Term 38w 4d M Vag-S pont Livin g Dionne crespo CNM Delivery Location:[facility] Comments:Apg 8-9-9 2023 SAB 6w1 d [...] 10/21/2024 10:52 AM EST Plan of Treatment Upcoming Encounters Date Type Department Care Team (Late st Contact Info) Description 12/22/2024 10:45 AM EDT Office Visit Obstetrics and Gynecology - [place] [address] [place] [address] Deepti Hollingsworth, [place] [address] [place] [address] Health Maintenance Due Date Last Done Comments [...] ENDOTRACHEAL(NO CHARGE) Routine 09/29/2024 1:19 PM EST AR LAP SURG W FULG/EXC LESIONS OF OVARY PELVIC VISCERA/PERITONEAL SURFACE 09/29/2024 12:55 PM EST Dermoid cyst of ovary, right Pelvic pain in female Uterine cyst Case Notes MOVE TO OR 17 AR HYSTEROSCOPY W/BIOPSY ENDOMETRIUM AND/OR POLYPECTOMY W/O AND/OR W/D&C 09/29/2024 12:55 PM EST Dermoid cyst of ovary, right Pelvic pain in female Uterine cyst Case Notes MOVE TO OR 17 POC , URINE DIAGNOSTIC Routine 09/29/2024 11:54 AM EST CBC WITH AUTO DIFFERENTIAL Routine 09/29/2024 11:53 AM EST TYPE AND SCREEN Routine 09/29/2024 11:53 AM EST CBC AND DIFFERENTIAL Routine 09/29/2024 11:53 AM EST HPV Routine 05/14/2024 HEPATITIS C SCREENING Routine 05/05/2024 HIV SCREENING Routine 05/05/2024 from Last 3 Months or Most Recently Relevant to Health Maintenance Results * XR Foot 3+ Views Left (12/01/2024 9:52 PM EDT) Anatomical Region Laterality Modality Lower Extremities, Foot Left [facility] 12/02/2024 9:24 AM EDT Impressions 12/02/2024 9:26 AM EDT The small fracture fragment seen on the accompanying ankle series is not seen on this exam. -------- FINAL REPORT -------- Dictated By: Lavell Brown Dictated Date: 12/02/2024 09:24 ET Assigned Physician: Lavell Brown Reviewed and Electronically Signed By: Lavell Brown Signed Date: 12/02/2024 09:26 ET Workstation ID: [id number] Transcribed By: Self Edit Transcribed Date: 12/02/2024 [...] Signed Date: 12/02/2024 09:26 ET Workstation ID: [id number] Transcribed By: Self Edit Transcribed Date: 12/02/2024 [...] Signed Date: 12/02/2024 09:27 ET Workstation ID: [id number] Transcribed By: Self Edit Transcribed Date: 12/02/2024 [...] Signed Date: 12/02/2024 09:27 ET Workstation ID: [id number] Transcribed By: Self Edit Transcribed Date: 12/02/2024 09:24 ET us Bradly Merino MD IMG XR PROCEDURES Final Res ult * Tissue exam (09/29/2024 1:40 PM EST) Final Diagnosis A. Endometrial curettings: Secretory endometrium with breakdown No endometrial polyp, hyperplasia or neoplasm identified B. Right ovary, cyst excision: Mature teratoma 09/30/2024 9:21 AM EST [facility] Gross Description A. Endometrium, EMC: [...] nodule. No residual ovarian parenchyma is identified. Photographic Laboratory Technician sections are submitted into cassettes, two pieces each. BELA 09/30/2024 9:21 AM EST [facility] Disclaimer Unless otherwise specified, all tissue is 10% NB formalin fixed and paraffin embedded. 09/30/2024 9:21 AM EST [facility] Tissue Endometrial structure / Unknown 09/29/2024 1:40 PM EST 09/29/2024 3:57 PM EST Tissue specimen (specimen) Structure of right ovary / Unknown 09/29/2024 2:57 PM EST 09/29/2024 3:57 PM EST Nadya Gonzalez DO LAB PATHOLOGY ORDERABLES Melodie dyson Result [facility] [address] [place] [address], * TH AN ENDOTRACHEAL(NO CHARGE) (09/29/2024 1:19 [...] manually resulted (09/29/2024 11:54 AM EST) Pathologist [facility] HCG, Ur POC Negative Negative POC hCG Int QC Pass? Yes Yes Urine Urine specimen obtained by clean catch procedure / Unknown 09/29/2024 11:54 AM EST Nadya Gonzalez DO POINT OF CARE TEST ENTER/EDIT ORDERABLES Final Result * CBC auto differential (09/29/2024 11:53 AM EST) [facility] WBC 7.0 4.8 - 10.8 K/mcL LAB HEMETOLOGY METHOD 09/29/2024 12:15 PM [facility] RBC 4.10 3.80 - 4.80 M/mcL LAB HEMETOLOGY METHOD 09/29/2024 12:15 PM [facility] Hemoglobin 12.2 11.5 - 16.0 g/dL LAB HEMETOLOGY METHOD 09/29/2024 12:15 PM [facility] Hematocrit 36.9 35.0 - 47.0 % LAB HEMETOLOGY METHOD 09/29/2024 12:15 PM [facility] MCV 90.7 79.0 - 98.0 FL LAB HEMETOLOGY METHOD 09/29/2024 12:15 PM [facility] MCH 30.0 27.0 - 32.0 pcg LAB HEMETOLOGY METHOD 09/29/2024 12:15 PM [facility] MCHC 33.1 32.0 - 37.0 g/dL LAB HEMETOLOGY METHOD 09/29/2024 12:15 PM [facility] RDW 12.3 11.0 - 15.0 % LAB HEMETOLOGY METHOD 09/29/2024 12:15 PM [facility] Platelets 281 130 - 400 K/mcL LAB HEMETOLOGY METHOD 09/29/2024 12:15 PM [facility] MPV 9.5 7.0 - 11.0 FL LAB HEMETOLOGY METHOD 09/29/2024 12:15 PM [facility] NRBC 0.0 <1.0 % LAB HEMETOLOGY METHOD 09/29/2024 12:15 PM [facility] NRBC Absolute 0.00 <0.10 K/mcL LAB HEMETOLOGY METHOD 09/29/2024 12:15 PM [facility] Neutrophils Relative 66.4 % LAB HEMETOLOGY METHOD 09/29/2024 12:15 PM [facility] Lymphocytes Relative 24.0 % LAB HEMETOLOGY METHOD 09/29/2024 12:15 PM [facility] Monocytes Relative 6.5 % LAB HEMETOLOGY METHOD 09/29/2024 12:15 PM [facility] Eosinophils Relative 2.7 % LAB HEMETOLOGY METHOD 09/29/2024 12:15 PM [facility] Basophils Relative 0.1 % LAB HEMETOLOGY METHOD 09/29/2024 12:15 PM [facility] Immature Granulocytes Relative 0.3 % LAB HEMETOLOGY METHOD 09/29/2024 12:15 PM [facility] Neutrophils Absolute 4.63 1.50 - 7.00 K/mcL LAB HEMETOLOGY METHOD 09/29/2024 12:15 PM [facility] Lymphocytes Absolute 1.67 1.00 - 5.00 K/mcL LAB HEMETOLOGY METHOD 09/29/2024 12:15 PM [facility] Monocytes Absolute 0.45 0.20 - 1.00 K/mcL LAB HEMETOLOGY METHOD 09/29/2024 12:15 PM [facility] Eosinophils Absolute 0.19 0.00 - 0.50 K/mcL LAB HEMETOLOGY METHOD 09/29/2024 12:15 PM EST [facility] Basophils Absolute 0.01 0.00 - 0.20 K/[facility] LAB HEMETOLOGY METHOD 09/29/2024 12:15 PM EST [facility] Immature Granulocytes Absolute 0.02 0.00 - 0.03 K/[facility] LAB HEMETOLOGY METHOD 09/29/2024 12:15 PM EST [facility] Blood Venous blood specimen / Unknown Venipuncture / Unknown 09/29/2024 11:53 AM EST 09/29/2024 12:01 PM EST Nadya Gonzalez LAB BLOOD ORDERABLES Final Re sult [facility] [address] [place] [address], [place] [phone] * Type and screen (09/29/2024 11:53 AM EST) Pathologist [facility] ABO Group A 09/29/2024 1:00 PM EST [facility] Rh Type Positive 09/29/2024 1:00 PM EST [facility] Antibody Screen Negative 09/29/2024 1:00 PM EST [facility] Blood Venous blood specimen / Unknown Venipuncture / Unknown 09/29/2024 11:53 AM EST 09/29/2024 12:01 PM EST Nadya Gonzalez DO [facility] BLOOD BANK TEST ORDERABLE S Final Result [facility] [address] [place] [address], [place] [phone] * Cervical Cancer Screening: HPV (05/14/2024) Cervical Cancer Screening: HPV Negative, Abstracted Historical Provider HEALTH MAINTENANCE Final Result * HIV Screening (05/05/2024) HIV Screening Abstracted us Historical Provider HEALTH MAINTENANCE Final Result * Hepatitis C Screening (05/05/2024) HM Hepatitis C Screening Abstracted us Historical Provider HEALTH MAINTENANCE Final Result from Last 3 Months or Most Recently Relevant to Health Maintenance Insurance [facility] [employer] Advance Directives * Full Code - [...] currently active code status orders. Care Teams Community Marketing Manager Relationship Specialty Start Date End Date Rani Davis MD [address] [place] [address] PCP - General Internal Medicine 12/22/20
== END 2024-12-21 11:54 | disposition home or self-care (01) ==
PROVIDERS: PCP Internal Medicine; Visit Provider Physician Assistant
DX: S61.210A Laceration without foreign body of right index finger without damage to nail, initial encounter (principal)

== ENCOUNTER 2025-02-24 13:56 | Outpatient (AMB) | payer OTHER, SELFPAY ==
[2025-02-24 13:59] VITALS: BP 102/60; PULSE 80; TEMP 36.7; O2SAT 98; BMI 31.0
--- NOTE | 2025-02-24 13:59 | AM.OFFWIN_ITS ---
Intake Vital Signs 02/24/25 13:59 Height 5 ft 6 in Weight 192 lb BMI 31.0 BP 102/60 Blood Pressure Location Lt brachial Position Sitting Pulse 80 Pulse Source Pulse Oximeter Temp 98.0 F Temp Source Oral Pulse Oximetry (%) 98 Oxygen Delivery Method Room Air Intake Visit Reasons: EP rash on back of neck going up the head area Intake Note: here for itchy bumpy rash on neck and scalp, also c/o yeast infection Patient Tobacco Use Status: Current everyday Tobacco user Allergies No Known Allergies Allergy (Verified 02/24/25 14:02) Do you need a note to return to daycare/school/sports/work: No HPI HPI Comments History of Present Illness Details 29 y/o Female patient who presents to [facility] walk in clinic with c/o Vaginal itching and foul odor for few days. Pt believes she might have a Yeast infection or BV - because she does get frequent Bacterial infections in her va aracelis. Pt sexually active with 1 female partner - no concerns for STI testing. [facility] Medical History (Updated 02/24/25 @ 14:55 by Dominique Alejandro NP) Vaginitis and vulvovaginitis Left ankle pain Reactive airway disease Anxiety and depression Hair thinning Palpable thyroid Fatigue Tubal ligation evaluation Rash Papanicolaou smear of cervix within last year Obesity Vitamin D deficiency Mixed dyslipidemia Surgical History No pertinent past surgical history Family History Father No problems noted. Mother No problems noted. Brother No problems noted. Sister No problems noted. Sister No problems noted. Social History Housing: Apartment Alcohol intake: never Patient Tobacco Use Status: Current everyday Tobacco user Cigarette Packs Per Day: 1 e-Cigarette/Vaping Use: Never Used Current occupational status: unemployed Cognitive needs: No Hearing needs: No Vision needs: Yes Review of Systems Const All systems reviewed & are unremarkable except as noted in HPI and below Physical Exam Vital Signs: Last Vital Signs Temp 98.0 F 02/24/25 13:59 Pulse 80 02/24/25 13:59 BP 102/60 02/24/25 13:59 Pulse Ox 98 02/24/25 13:59 Oxygen Delivery Method Room Air 02/24/25 13:59 BMI result Body Mass Index 31.0 Const General: no acute distress Nutritional Appearance: overweight Orientation/consciousness: patient oriented x3 GI Inspection: Yes normal to inspection Palpation (GI): Soft to palpation, not firm, nontender, no guarding, not rigid and No hepatosplenomegaly present Auscultation: normal bowel sounds General: Yes bladder normal to palpation External Female Exam: normal external appearance Speculum Exam - Vagina: normal palpation, normal vaginal discharge, no cysts, not erythematous, no lacerations, no lesions, no swelling and nontender Speculum Exam - Cervix: normal appearance of the cervix, Cervical os open, no masses and nontender Bimanual exam- vagina & uterus: normal palpation, uterine size normal, bladder normal to palpation and No Cervical tenderness present OB/external & speculum: Cervical os open Neuro General: patient oriented x3 Results AMB Urinalysis, Automated UA Leukoctes 0 Tiff/uL Last Edit by Maite Fulton MA on 02/24/25 15:27 UA Nitrite Negative Last Edit by Maite Fulton MA on 02/24/25 15:27 UA Urobilinogen 0.2 mg/dL Last Edit by Maite Fulton MA on 02/24/25 15:27 UA Protein 0 mg/dL Last Edit by Maite Fulton MA on 02/24/25 15:27 UA pH 6.0 Last Edit by Maite Fulton MA on 02/24/25 15:27 UA Blood 0 Angel/uL Last Edit by Maite Fulton MA on 02/24/25 15:27 UA Specific Campbell 1.030 Last Edit by Maite Fulton MA on 02/24/25 15:2 7 UA Ketone Negative Last Edit by Maite Fulton MA on 02/24/25 15:27 UA Bilirubin 0 mg/dL Last Edit by Maite Fulton MA on 02/24/25 15:27 UA Glucose 0 mg/dL Last Edit by Maite Fulton MA on 02/24/25 15:27 Results Reviewed Results Reviewed: Laboratory Last Values Urine pH (Auto) 6.0 02/24/25 15:21 Specific Campbell (Auto) 1.030 02/24/25 15:21 Urine Protein (Auto) 0 mg/dL 02/24/25 15:21 Glucose (UA)(Auto) 0 mg/dL 02/24/25 15:21 Urine Ketones (Auto) Negative 02/24/25 15:21 Urine Blood (Auto) 0 Angel/uL 02/24/25 15:21 Urine Nitrite (Auto) Negative 02/24/25 15:21 Urine Bilirubin (Auto) 0 mg/dL 02/24/25 15:21 Urine Urobilinogen (Auto) 0.2 mg/dL 02/24/25 15:21 Leukocyte Esterase (Auto) 0 Tiff/uL 02/24/25 15:21 Assessment & Plan Assessment & Plan (1) Vaginitis and vulvovaginitis: Code(s): N76.0 - Acute vaginitis Plan: Urinalysis negative for LEUK or NIT Vaginal and Pelvic exam negative - normal vaginal discharge. Order Vaginal panel Educated on safe sex and ways to prevent frequent vaginal infections. Orders: Orders AMB Urinalysis Automated Today Z13.9 - Encounter for screening, unspecified Bacterial Vaginosis Panel Today N76.0 - Acute vaginitis Coding Level of Care Code Est Pt Level 4 (99539) Diagnoses Vaginitis and vulvovaginitis N76.0 Time Spent (min) 20
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
== END 2025-02-24 14:48 | disposition home or self-care (01) ==
PROVIDERS: PCP Internal Medicine; Visit Provider Nurse Practitioner Family
DX: Z13.9 Encounter for screening, unspecified (principal); N76.0 Acute vaginitis

== ENCOUNTER 2025-02-24 13:56 | Outpatient (REF) | payer OTHER, SELFPAY ==
[2025-02-24 17:04] LABS: Bacterial Vaginosis PCR POSITIVE (Negative); Candida Group PCR NOT DETECTED (Not Detect); Candida glab krusei PCR NOT DETECTED (Not Detect); Trichomonas vaginalis PCR NOT DETECTED (Not Detect)
== END 2025-02-24 13:57 | disposition home or self-care (01) ==
LOC: HO.LAB 13:56
PROVIDERS: PCP Internal Medicine; Visit Provider Nurse Practitioner Family
DX: N76.0 Acute vaginitis (principal)
CPT/HCPCS: 81003; 81515; 99212

== ENCOUNTER 2025-04-26 11:45 | Outpatient (AMB) | payer OTHER, SELFPAY ==
[2025-04-26 11:51] VITALS: BP 100/60; PULSE 75; TEMP 36.9; O2SAT 99; BMI 31.0
--- NOTE | 2025-04-26 11:51 | AM.OFFWIN_ITS ---
Intake Vital Signs 04/26/25 11:51 Height 5 ft 6 in Weight 192 lb BMI 31.0 BP 100/60 Blood Pressure Location Lt brachial Position Sitting Pulse 75 Pulse Source Pulse Oximeter Temp 98.5 F Temp Source Oral Pulse Oximetry (%) 99 Oxygen Delivery Method Room Air Intake Visit Reasons: ep mucas build up, SOB Intake Note: pt presents with chest congestion with productive cough when deep breathing, SOB Patient Tobacco Use Status: Current everyday Tobacco user Allergies No Known Allergies Allergy (Verified 04/26/25 11:52) HPI HPI Comments History of Present Illness Details History - The patient is a 30-year-old female pr esenting with shortness of breath and cough worsening over a week. - She has a history of asthma and uses a n albuterol inhaler, which has not been effective recently. - The patient experiences coughing and s hortness of breath, particularly when taking deep breaths or moving, and sometimes produces mucus. - She has a history of tobacco use, thou gh she has not smoked in the past few days. - Approximately one week ago, she had a cold with symptoms including loss of voi ce and fatigue, but no fever, sinus pain, or ear pain or headaches. - The patient reports waking up at night with difficulty breathing. Physical Exam General: Cooperative, healthy appearing, comfortable and no acute distress Orientation/consciousness: Patient oriented x3 Limitations: No limitations Head: Normal to inspection Ears: Hearing grossly normal bilaterally, external ears normal and TM's normal bilaterally Nose: Normal external nose present, Normal nares present and No nasal discharge present Face and sinus: Normal facial exam and Yes sinuses nontender Mouth: Normal oral and palatal mucosa present and moist mucous membranes Throat: Yes tonsils normal, Yes uvula midline. Posterior oropharynx erythema, no exudates Eyes: Appearance normal, both eyes and all related structures Neck: Normal visual inspection, full ROM Respiratory: exp wheezing bilaterally, R>L with some rhonchi on the right side. Normal respiratory effort, able to speak in complete sentences, Actively coughing, no respiratory distress, not tachypneic, no tripod positioning and no use of accessory muscles. Cardiovascular: Regular rate and rhythm. Normal S1 and S2 Skin: No rashes or lesions noted Neuro: Patient oriented x3 Extremities: Normal to inspection and Yes no clubbing, cyanosis or edema [facility] Medical History (Updated 04/26/25 @ 12:13 by Toña Coley PA-C) Bacterial vaginosis Vaginitis and vulvovaginitis Left ankle pain Reactive airway disease Anxiety and depression Hair thinning Palpable thyroid Fatigue Tubal ligation evaluation Rash Papanicolaou smear of cervix within last year Obesity Vitamin D deficiency Mixed dyslipidemia Surgical History No pertinent past surgical history Family History Father No problems noted. Mother No problems noted. Brother No problems noted. Sister No problems noted. Sister No problems noted. Social History Housing: Apartment Alcohol intake: never Patient Tobacco Use Status: Current everyday Tobacco user Cigarette Packs Per Day: 1 e-Cigarette/Vaping Use: Never Used Current occupational status: unemployed Cognitive needs: No Hearing needs: No Vision needs: Yes Review of Systems Const All systems reviewed & are unremarkable except as noted in HPI and below Physical Exam Vital Signs: Last Vital Signs Temp 98.5 F 04/26/25 11:51 Pulse 75 04/26/25 11:51 BP 100/60 04/26/25 11:51 Pulse Ox 99 04/26/25 11:51 Oxygen Delivery Method Room Air 04/26/25 11:51 BMI result Body Mass Index 31.0 Assessment & Plan Assessment & Plan (1) Lower respiratory infection (e.g., bronchitis, pneumonia, pneumonitis, pulmonitis): Code(s): J22 - Unspecified acute lower respiratory infection Plan: Plan Patient was informed and verbally consented to the use of an ambient scribe for clinic note documentation during this visit. - VSS, pt well appearing and PE remarkable for exp wheezes and slight right sided rhonchi. - Prescribed prednisone 50 mg daily for five days to reduce inflammation and improve breathing. Discussed risks and benefits. - Advised to continue using albuterol inhaler as needed. - Ordered chest x-ray to rule out pneumonia. - Conducted flu, COVID-19, and RSV tests to identify viral causes. - Discussed the importance of smoking cessation to improve respiratory health. Orders: Orders XR chest 2V Today R05.9 - Cough, unspecified Medications: New prednisone 50 mg PO QAM 5 tabs 0RF benzonatate 200 mg PO BEDTIME PRN 10 caps 0RF cough Coding Level of Care Code Est Pt Level 4 (70649) Diagnoses Lower respiratory infection (e.g., bronchitis, pneumonia, pneumonitis, pulmonitis) J22
--- OUTSIDE RECORDS SUMMARY | 2025-04-26 14:16 | XMS_ITS | Clinical Summary ---
Author Organization [facility] Address [address] [place] [address] Phone Care Team Providers Care Truck Caterer Name Role Phone Rani Davis MD Primary [...] Encounters Date Type Department Care Team Description 03/10/2025 8:40 AM EDT - 03/10/2025 11:59 PM EDT Hospital Encounter [facility] Ortho Xray [address] [place] [address] Pain Discharge Disposition: Home or Self Care from [...] Site/Laterality Comments OTHER SURGICAL HISTORY 09/2018 PROCEDURE: CT DILATION & CURETTAGE DX&/THER NONOBSTETRIC; COMMENT: tab OVARIAN CYST REMOVAL 04/23/2020 Left PROCEDURE: CT OVARIAN CYSTECTOMY UNI/BI; COMMENT: right ovarian cystectomy [...] 02/21/2022 DX:Varicella v accine; COMMENT: rec'd at [facility] after Family History Medical History [...] care for your loved ones. For example, child watch attendant or elderly care for an older adult? [...] 09/23/2024 11 :16 AM EST Obstetrics History * This document contains information received from the source organization and may not represent a complete record from that organization. Para Term AB IAB SAB Ectopic Multiple Livin g Live Births 9 6 6 6 6 Date Outcome GA Total Labor Labor/2nd/3rd Weight Sex Type Anes PTL Suzanne A1 A5 Name Clin 2010 2011 Term 39w 0d 3742 g (132 oz) M Vag-S pont Epidur al Livin g Khile Complications: dep ression,Lost custody of children Delivery [...] Complications: dep ression,Lost custody of children Delivery Location:[facility] Comments:pt has custod y 2016 Term 39w 0d 3558 g (125.5 oz) M Vag-S pont Epidur al N Livin g Donis dyson Complications: dep ression,Lost custody of children Delivery Location:[facility] Comments:pt has custod y 9 2019 Term 40w 4d 3600 g (127 oz) F Vag-S pont None Livin g 8 9 C. Smidy , CNM Complications:Precipitate la bor Delivery Location:[facility] 2021 Term 38w 4d M Vag-S pont Livin g BBrittney Hernandezho p, CNM Delivery Location:[facility] Comments:Apg 8-9-9 2023 Last Filed Vital Signs Vital Sign Reading [...] 12/22/2024 11:32 AM EDT Plan of Treatment Health Maintenance Due Date Last Done Comments Hepatitis B Vaccines (2 of 3 - 19+ 3-dose series) 04/14/2018 03/17/2018 Pneumococcal Vaccine: Pediatrics (0 to 5 Years) and At-Risk Patients (6 to 49 Years) (2 of 2 - PCV) 03/02/2020 03/02/2019 Cholesterol Screening (Lipid Panel) 07/21/2022 COVID-19 Vaccine (3 - 2024-2 6 season) 2025 05/19/2023, 06/09/2021 Influenza Vaccine (#1) 2025 0, 09/22/2019 Social Influencers of Health Screening 12/22/2025 12/22/2024 Cervical Cancer Screening: HPV 05/14/2029 05/14/2024 DTaP,Tdap,and Td Vaccines (4 - Td or Tdap) 11/15/2029 11/16/2019, 02/12/2017, 11/15/2015 Varicella Vaccines Aged Out 02/21/2022 No longer eligible based on patient's age to complete this topic MMR Vaccines Aged Out 12/07/2024, 03/17/2018 No longer eligible based on patient's age to complete this topic Depression Screening Completed 12/22/2024 HIV Screening Completed 12/30/2024, 05/05/2024, 05/05/2024 Hepatitis [...] Diagnosis Comments XR FOOT 3+ VIEWS LEFT Routine 03/10/2025 11:39 AM EDT Pain XR TIBIA FIBULA 2 VIEWS LEFT Routine 03/10/2025 11:39 AM EDT Pain XR ANKLE 3+ VIEWS LEFT Routine 11:39 AM EDT Pain HEPATITIS C ANTIBODY Routine 12/30/2024 11:25 AM EDT Screen for STD (sexually transmitted disease) HIV 1, 2 ANTIBODY, P24 ANTIGEN WITH REFLEX TO DIFFERENTIATION Routine 12/30/2024 11:25 AM EDT Screen for STD (sexually transmitted disease) HM HPV Routine 05/14/2024 from Last 3 Months or Most Recently Relevant to Health Maintenance Results * XR Foot 3+ Views Left (03/10/2025 11:39 AM EDT) Narrative RIS PACS/VR - 03/10/2025 11:39 AM EDT This order has been auto-finalized and does not contain a result. Lovely Gilbert MD IMG XR PROCEDURES Final Result Performing Organization Address [facility] Co de Phone Number RIS PACS/VR * XR Ankle 3+ Views Left (03/10/2025 11:39 AM EDT) Narrative RIS PACS/VR - 03/10/2025 11:39 AM EDT This order has been auto-finalized and does not contain a result. Lovely Gilbert MD IMG XR PROCEDURES Final Result Performing Organization Address [facility] Co de Phone Number RIS PACS/VR * XR Tibia Fibula 2 Views Left (03/10/2025 11:39 AM EDT) Narrative RIS PACS/VR - 03/10/2025 11:39 AM EDT This order has been auto-finalized and does not contain a result. Lovely Gilbert MD IMG XR PROCEDURES Final Result Performing Organization Address [facility] Co de Phone Number RIS PACS/VR * Hepatitis C antibody (12/30/2024 11:25 AM EDT) [facility] Hepatitis C Antibody Negative Negative LAB CHEMISTRY METHOD 12/30/2024 3:27 PM EDT [facility] Blood Venous blood specimen / Unknown Venipuncture / Unknown 12/30/2024 11:25 AM EDT 12/30/2024 11:25 AM EDT Deepti PERLA LAB BLOOD ORDERABLES Final Res ult Performing Organization Address City/[facility]/ZIP Co de Phone Number [facility] [address] [place] [address], [place] [phone] * HIV 1,2 antibody, p24 antigen with reflex to differentiation (12/30/2024 11:25 AM EDT) [facility] HIV Combo AB/AG Negative Negative LAB CHEMISTRY METHOD 12/30/2024 3:28 PM EDT [facility] Blood Venous blood specimen / Unknown Venipuncture / Unknown 12/30/2024 11:25 AM EDT 12/30/2024 11:25 AM EDT Narrative [facility] - 12/30/2024 3:28 PM EDT This assay is a 4th generation assay allowing for earlier detection of HIV infection by detecting the presence of the HIV-1 p24 antigen as well as the traditional antibodies to HIV type 1 (including group O) and type 2. Use of a 4th generation assay is the current CDC recommendation for HIV screening. Deepti Hollingsworth [facility] BLOOD ORDERABLES Final Res ult Performing Organization Address [facility]/ZIP Co de Phone Number [facility] [address] [place] [address], [place] [phone] * Cervical Cancer Screening: HPV (05/14/2024) [facility] Cervical Cancer Screening: HPV Negative, Abstracted Historical Provider HEALTH MAINTENANCE Final Result from Last 3 Months or Most Recently Relevant to Health Maintenance Insurance [facility] [employer] Advance Directives * Full Code [...] currently active code status orders. Care Teams Truck Caterer Relationship Specialty Start Date End Date Rani Davis MD [address] [place] [address] PCP - General Internal Medicine 12/22/20
== END 2025-04-26 12:09 | disposition home or self-care (01) ==
PROVIDERS: PCP Internal Medicine; Visit Provider Physician Assistant
DX: J22 Unspecified acute lower respiratory infection (principal)

== ENCOUNTER 2025-04-26 11:45 | Outpatient (REF) | payer OTHER, SELFPAY ==
--- NOTE | ~2025-04-26 | XR_ITS ---
EXAMINATION: XR CHEST CLINICAL INFORMATION: R05.9 - Cough, unspecified COMPARISON: None available. TECHNIQUE: 2 views of the chest were obtained. FINDINGS: There is a vague focal opacity visible on the frontal view in the lower third left lung zone region where ribs and vessels overlap. Otherwise, lungs are clear and well expanded. Heart size is within normal limits. There is no sign of pleural effusion. XR/XR chest 2V IMPRESSION: Vague opacity in the left lower lung zone, is suspected to be related to summation artifact related to overlapping structures. Correlate for signs and symptoms to rule out early or mild changes related to pneumonia. Electronically signed by: Kenneth Hoover MD 04/26/2025 12:42 PM EDT
== END 2025-04-26 11:46 | disposition home or self-care (01) ==
LOC: HO.HMGCX 11:45
PROVIDERS: PCP Internal Medicine; Visit Provider Physician Assistant
DX: J22 Unspecified acute lower respiratory infection (principal); R06.02 Shortness of breath; J45.909 Unspecified asthma, uncomplicated; F17.210 Nicotine dependence, cigarettes, uncomplicated; Z79.51 Long term (current) use of inhaled steroids
CPT/HCPCS: 71046; 87637; 99212

== ENCOUNTER 2025-04-26 12:14 | Outpatient (REF) | payer OTHER, SELFPAY ==
[2025-04-26 14:18] LABS: Resp Syncy Virus RNA Qual PCR NEGATIVE (Negative); SARS COV2 PCR INHOUSE NEGATIVE (Negative)
== END 2025-04-26 12:15 | disposition home or self-care (01) ==
LOC: HO.LAB 12:14
PROVIDERS: Visit Provider Physician Assistant
DX: Z13.89 Encounter for screening for other disorder (principal)
CPT/HCPCS: 87637

== ENCOUNTER → 2025-04-26 12:24 | Outpatient (BNV) | payer OTHER, SELFPAY | PROVIDERS: PCP Internal Medicine; Visit Provider Radiology Diagnostic Radiology | DX: R91.8 Other nonspecific abnormal finding of lung field (principal) | CPT/HCPCS: 71046 ==

== ENCOUNTER 2025-05-30 12:40 | Outpatient (AMB) | payer OTHER, SELFPAY ==
--- OUTSIDE RECORDS SUMMARY | 2025-05-30 12:43 | XMS_ITS | Clinical Summary ---
Author Organization [facility] Address [address] [place] [address] Phone Care Team Providers Care Machine Tool Operator Name Role Phone Rani Davis MD [...] - 03/10/2025 11:59 PM EDT Hospital Encounter [facility] Ortho Xray [address] [place] [address] Pain Discharge Disposition: Home or Self Care from Last 3 Months Immunizations Immunization Administration Dates Next Due Influenza Quadravalent, MDCK , 0.5ml, preservative free (Flucelvax) 6mo and older 09/22/2019 Pfizer SARS-CoV-2 COVID-19, mRNA, LNP-S, preservative free 06/09/2021 Tdap Tetanus diptheria acell ular pertussis (Boostrix; Adacel) 7yo and older 11/16/2019 Varicella live (Varivax) 12mo and older 02/22/20 22 Surgical History Surgery Date Site/Laterality Comments OTHER SURGICAL HISTORY 09/2018 PROCEDURE: AL DILATION & CURETTAGE DX&/THER NONOBSTETRIC; COMMENT: tab OVARIAN CYST REMOVAL 04/23/2020 Left PROCEDURE: AL OVARIAN CYSTECTOMY UNI/BI; COMMENT: right ovarian cystectomy [...] 02/21/2022 DX:Varicella v accine; COMMENT: rec'd at [facility] after Family History Medical History Relation Name [...] care for your loved ones. For example, children's counselor or elderly care for an older adult? [...] Date Recorded What is your living situation? Unrecognized valu e 12/22/2024 Interpersonal Safety Answer Date Record ed Physical Abuse Unrecognized value 09/29/2024 Verbal Abuse Unrecognized value 09/29/2024 Comments No Sex and Gender Information [...] Complications: dep ression,Lost custody of children Delivery Location:[facility] Comments:pt has custod y 2016 Term 39w 0d 3558 g (125.5 oz) M Vag-S pont Epidur al N Livin g Donis dyson Complications: dep ression,Lost custody of children Delivery Location[facility] Comments:pt has custod y 9 2019 Term 40w 4d 3600 g (127 oz) F Vag-S pont None Livin g 8 9 C. Cele , CNM Complications:Precipitate la bor Delivery Location:[facility] 2021 Term 38w 4d M Vag-S pont Livin g B. Flakita p, CNM Delivery Location:[facility] Comments:Apg 8-9-9 2023 Last Filed [...] (2 of 2 - PCV) 03/02/2020 03/02/2019 HPV Vaccines (1 - 3-dose SCD M series) 2021 Cholesterol Screening (Lipid Panel) 07/21/2022 COVID-19 Vaccine ( - 2024-2 6 season) 2025 05/19/2023, 06/09/2021 Influenza Vaccine (#1) 2025 0, 09/22/2019 Social Influencers of Health Screening 12/22/2025 12/22/2024 Cervical Cancer Screening: HPV 05/14/2029 05/14/2024 DTaP,Tdap,and Td Vaccines (4 - Td or Tdap) 11/15/2029 11/16/2019, 02/12/2017, 11/15/2015 RSV Immunization Adult Patients (1 - 1-dose 75+ series) 2069 Varicella Vaccines Aged Out 02/21/2022 No longer [...] Pain XR ANKLE 3+ VIEWS LEFT Routine 5 11:39 AM EDT Pain HEPATITIS C ANTIBODY [...] auto-finalized and does not contain a result. us Lovely Gilbert MD IMG XR PROCEDURES Final Result Performing Organization Address [facility] Co de Phone Number RIS PACS/VR * XR Ankle 3+ Views Left (03/10/2025 11:39 AM EDT) Narrative RIS PACS/VR - 03/10/2025 11:39 AM EDT This order has been auto-finalized and does not contain a result. us Lovely Gilbert MD IMG XR PROCEDURES Final Result Performing Organization Address City/[facility]/ZIP Co de Phone Number RIS PACS/VR * XR Tibia Fibula 2 Views Left (03/10/2025 11:39 AM EDT) Narrative RIS PACS/VR - 03/10/2025 11:39 AM EDT This order has been auto-finalized and does not contain a result. us Lovely Gilbert MD IMG XR PROCEDURES Final Result Performing Organization Address [facility]/ZIP Co de Phone Number RIS PACS/VR * Hepatitis C antibody (12/30/2024 11:25 AM EDT) [facility] Hepatitis C Antibody Negative Negative LAB CHEMISTRY METHOD 12/30/2024 3:27 PM EDT [facility] Blood Venous blood specimen / Unknown Venipuncture / Unknown 12/30/2024 11:25 AM EDT 12/30/2024 11:25 AM EDT Deepti Hollingsworth [facility] BLOOD ORDERABLES Final Res ult Performing Organization Address [facility]/ZIP Co de Phone Number [facility] [address] [place] [address], [place] [phone] * HIV 1,2 antibody, p24 antigen with reflex to differentiation (12/30/2024 11:25 AM EDT) [facility] HIV Combo AB/AG Negative Negative LAB CHEMISTRY METHOD 12/30/2024 3:28 PM EDT [facility] Blood Venous blood specimen / Unknown Venipuncture / Unknown 12/30/2024 11:25 AM EDT 12/30/2024 11:25 AM EDT Narrative [facility] - 12/30/2024 3:28 PM EDT This assay is a 4th generation assay allowing for earlier detection of HIV infection by detecting the presence of the HIV-1 p24 antigen as well as the traditional antibodies to HIV type 1 (including group O) and type 2. Use of a 4th generation assay is the current CDC recommendation for HIV screening. Deepti Hollingsworth [facility] BLOOD ORDERABLES Final Res ult Performing Organization Address [facility] Co de Phone Number [facility] [address] [place] [address], [place] [phone] * Cervical Cancer Screening: HPV (05/14/2024) [facility] Cervical Cancer Screening: HPV Negative, Abstracted Historical Provider HEALTH MAINTENANCE Final Result from Last 3 Months or Most Recently Relevant to Health Maintenance Insurance [facility] [place] [address] Advance Directives * Full Code - Default [...] currently active code status orders. Care Teams Machine Tool Operator Relationship Specialty Start Date End Date Rani Davis MD [address] [place] [address] PCP - General Internal Medicine 12/22/20
--- NOTE | 2025-05-30 13:01 | AM.OFFWIN_ITS ---
Intake Vital Signs 3 05/30/25 13:02 Height 5 ft 6 in Weight 195 lb BMI 31.5 BP 106/72 Blood Pressure Location Lt brachial Position Sitting Pulse 73 Pulse Source Pulse Oximeter Temp 98.1 F Temp Source Oral Pulse Oximetry (%) 98 Oxygen Delivery Method Room Air Intake Visit Reasons: EP-irritated lips Intake Note: pt is here for rash on upper lip (face) x3 weeks Patient Tobacco Use Status: Current everyday Tobacco user Allergies No Known Allergies Allergy (Verified 05/30/25 13:02) Medication List - Last Reconciled 05/30/25 by Dominique Alejandro NP valacyclovir 1,000 mg PO BID 10 days Do you need a note to return to daycare/school/sports/work: No HPI HPI Comments 2 History of Present Illness0 Details 30 y/o Female patient who presents to [facility] walk in clinic with c/o Rash on Upper/Lower Lips x 3 weeks. Reports she first started to feel tingling, itching before rash appeared. Rash is itchy and burning at times. 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 Denies Fevers, chills, nausea or vomiting. Denies any recent URI. Denies being Stressed and Sad. She does not have significant medical problems and does not take routine Medications. [facility] Medical History (Updated 05/30/25 @ 13:41 by Dominique Alejandro NP) HSV-1 infection Bacterial vaginosis Vaginitis and vulvovaginitis Left ankle pain Reactive airway disease Anxiety and depression Hair thinning Palpable thyroid Fatigue Tubal ligation evaluation Rash Papanicolaou smear of cervix within last year Obesity Vitamin D deficiency Mixed dyslipidemia Surgical History No pertinent past surgical history Family History Father No problems noted. Mother No problems noted. Brother No problems noted. Sister No problems noted. Sister No problems noted. Social History Housing: Apartment Alcohol intake: never Patient Tobacco Use Status: Current everyday Tobacco user Cigarette Packs Per Day: 1 e-Cigarette/Vaping Use: Never Used Current occupational status: unemployed Cognitive needs: No Hearing needs: No Vision needs: Yes Review of Systems Const All systems reviewed & are unremarkable except as noted in HPI and below Physical Exam Vital Signs: Last Vital Signs Temp 98.1 F 05/30/25 13:02 Pulse 73 05/30/25 13:02 BP 106/72 05/30/25 13:02 Pulse Ox 98 05/30/25 13:02 Oxygen Delivery Method Room Air 05/30/25 13:02 BMI result Body Mass Index 31.5 Const General: no acute distress Nutritional Appearance: overweight Orientation/consciousness: patient oriented x3 HEENT Head: Yes normocephalic Ears: hearing grossly normal bilaterally General nose exam: Normal external nose present Nose image: 2 1. Vesiculo-ulcerative lesions on both upper and lower lips. 2. Vesiculo-ulcerative lesions on both upper and lower lips. Face and sinus: Yes sinuses nontender Mouth: moist mucous membranes Throat: Yes uvula midline Neuro General: patient oriented x3, gait normal and moves all extremities Psych Speech and movement: Normal speech and movement present Assessment & Plan Assessment & Plan (1) HSV-1 infection: Code(s): B00.9 - Herpesviral infection, unspecified Plan: Will still order Valacyclovir today despite being past 72 hours since rash started. Abstain from Oral sex due to transmission to uninfected partner which may result in genital ulcers. Medications: New 2 valacyclovir 1,000 mg PO BID 20 tabs 2RF 10 days B00.9 - Herpesviral infection, unspecified Coding Level of Care Code Est Pt Level 4 (96887) Diagnoses HSV-1 infection B00.9 Time Spent (min) 20
[2025-05-30 13:02] VITALS: BP 106/72; PULSE 73; TEMP 36.7; O2SAT 98; BMI 31.5
== END 2025-05-30 14:05 | disposition home or self-care (01) ==
PROVIDERS: PCP Internal Medicine; Visit Provider Nurse Practitioner Family
DX: B00.9 Herpesviral infection, unspecified (principal)

== ENCOUNTER → 2025-05-30 12:40 | Outpatient (BNVA) | payer OTHER, SELFPAY | PROVIDERS: PCP Internal Medicine; Visit Provider Nurse Practitioner Family | DX: B00.9 Herpesviral infection, unspecified (principal) | CPT/HCPCS: 99212 ==

== ENCOUNTER 2025-07-28 09:55 | Outpatient (AMB) | payer OTHER, SELFPAY ==
--- NOTE | 2025-07-28 09:56 | AM.OFFWIN_ITS ---
Intake Vital Signs 07/28/25 09:57 Height 5 ft 6 in Weight 210 lb BMI 33.9 BP 108/62 Blood Pressure Location Lt brachial Position Sitting Pulse 86 Pulse Source Pulse Oximeter Pulse Oximetry (%) 98 Oxygen Delivery Method Room Air Intake Visit Reasons: EP- private part fishy order, yellow discharge Intake Note: Patient presents c/o yellow discharge, bad odor x3-4 weeks Patient Tobacco Use Status: Current everyday Tobacco user Allergies No Known Allergies Allergy (Verified 07/28/25 10:01) Do you need a note to return to daycare/school/sports/work: No HPI HPI Comments History of Present Illness Details History of Present Illness - The patient is a 30-year-old female wh o presents with symptoms suggestive of bacterial vaginosis. - She reports the onset of vaginal disch arge and an odor approximately three weeks ago. - The discharge is described as watery a nd is not consistent with a yeast infection. - She has a history of recurrent bacteri al vaginosis which has previously resolved with oral metronidazole. - The patient denies any concerns for se xually transmitted infections. - She denies fever, chills, abd pain, dy suria, or hematuria. Physical Exam General: Cooperative, healthy appearing, comfortable, no acute distress and well developed Orientation: Patient oriented x3 Limitations: No limitations Respiratory: Normal respiratory effort and able to speak in complete sentences. Clear to auscultation bilaterally Cardiovascular: Regular rate and rhythm. Normal S1 and S2 GI: Normal to inspection. Soft to palpation and nontender. No guarding noted. Negative CVA tenderness noted. Skin: No rashes or lesions noted Patient was informed and verbally consented to the use of an ambient scribe for clinic note documentation during this visit. [facility] Medical History (Updated 05/30/25 @ 13:41 by Dominique Alejandro NP) HSV-1 infection Bacterial vaginosis Vaginitis and vulvovaginitis Left ankle pain Reactive airway disease Anxiety and depression Hair thinning Palpable thyroid Fatigue Tubal ligation evaluation Rash Papanicolaou smear of cervix within last year Obesity Vitamin D deficiency Mixed dyslipidemia Surgical History No pertinent past surgical history Family History Father No problems noted. Mother No problems noted. Brother No problems noted. Sister No problems noted. Sister No problems noted. Social History Housing: Apartment Alcohol intake: never Patient Tobacco Use Status: Current everyday Tobacco user Cigarette Packs Per Day: 1 e-Cigarette/Vaping Use: Never Used Current occupational status: unemployed Cognitive needs: No Hearing needs: No Vision needs: Yes Review of Systems Const All systems reviewed & are unremarkable except as noted in HPI and below Physical Exam Vital Signs: Last Vital Signs Pulse 86 07/28/25 09:57 BP 108/62 07/28/25 09:57 Pulse Ox 98 07/28/25 09:57 Oxygen Delivery Method Room Air 07/28/25 09:57 BMI result Body Mass Index 33.9 Assessment & Plan Assessment & Plan (1) Vaginal odor: Code(s): N89.8 - Other specified noninflammatory disorders of vagina Plan Most likely Bacterial Vaginosis vs yeast vs STD plan - Vaginal swabs will be collected for a comprehensive panel to test for gonorrhea, chlamydia, trichomonas, yeast, and bacterial vaginosis. - Empiric treatment for bacterial vaginosis will be started with metronidazole 500 mg orally twice daily for seven days based on the patient's symptoms and history. - The patient will be contacted with test results, which are expected later today or tomorrow. - The treatment plan will be adjusted if results indicate a different diagnosis. Medications: New metronidazole 500 mg PO Q12H 14 tabs 0RF Coding Level of Care Code Est Pt Level 3 (79159) Diagnoses Vaginal odor N89.8
[2025-07-28 09:57] VITALS: BP 108/62; PULSE 86; O2SAT 98; BMI 33.9
== END 2025-07-28 10:37 | disposition home or self-care (01) ==
PROVIDERS: PCP Internal Medicine; Visit Provider Physician Assistant Medical
DX: N89.8 Other specified noninflammatory disorders of vagina (principal)

== ENCOUNTER 2025-07-28 09:55 | Outpatient (REF) | payer OTHER, SELFPAY ==
[2025-07-28 15:51] LABS: Bacterial Vaginosis PCR POSITIVE (Negative); Candida Group PCR NOT DETECTED (Not Detect); Candida glab krusei PCR NOT DETECTED (Not Detect); Trichomonas vaginalis PCR NOT DETECTED (Not Detect)
[2025-07-28 16:23] LABS: CT PCR NOT DETECTED (Not Detect.); NG PCR NOT DETECTED (Not Detect.)
--- OUTSIDE RECORDS SUMMARY | 2025-07-28 21:41 | XMS_ITS | Clinical Summary ---
Author Organization [facility] Address [address] [place] [address] Phone Care Team Providers Care Outside Sales Advertising Executive Name Role Phone Rani Davis MD Primary Care Provider Allergies No known active allergies Medications albuterol HFA (ProAir HFA) 90 mcg/actuation inhaler 02/22/2022 Active Active Problems Problem Noted Date Diagnosed Date Pelvic pain in female 08/31/2024 Obesity (BMI 30-39.9) 08/08/2021 Overview (06/09/2024): Resolved Problems Problem Noted Date Diagnosed Date Resolved Date Dermoid cyst of ovary, right 08/31/2024 09/29/2024 Uterine cyst 08/31/2024 09/29/2024 Immunizations Immunization Administration Dates Next Due Influenza [...] 02/21/2022 DX:Varicella v accine; COMMENT: rec'd at [facility] after Family History Medical History Relation [...] for your loved ones. For example, child development teacher or elderly care for an older adult? [...] Anes PTL Suzanne A1 A5 Name Clin 2011 2011 Term 39w 0d 3742 g (132 [...] Complications: dep ression,Lost custody of children Delivery Location:[facility] Comments:pt has custod y 9 2019 Term 40w 4d 3600 g (127 oz) F Vag-S pont None Livin g 8 9 C. Cele , CNM Complications:Precipitate la bor Delivery Location:[facility] 2021 Term 38w 4d M Vag-S pont Livin g B. Bisho p, CNM Delivery Location:[facility] Comments:Apg 8-9-9 2023 Last Filed Vital Signs [...] 2025 05/19/2023, 06/09/2021 Influenza Vaccine (#1) 2025 , 09/22/2019 Social Influencers of Health Screening 12/22/2025 [...] Procedure Name Priority Date/Time Associated Diagnosis Comments HEPATITIS C ANTIBODY Routine 12/30/2024 11:25 AM [...] LAB CHEMISTRY METHOD 12/30/2024 3:27 PM EDT [facility] Blood Venous blood specimen / Unknown Venipuncture / Unknown 12/30/2024 11:25 AM EDT 12/30/2024 11:25 AM EDT Deepti Hollingsworth [facility] BLOOD ORDERABLES Final Res ult Performing Organization Address [facility]/ZIP Co de Phone Number [facility] [address] [place] [address], [place] [phone] * HIV 1,2 antibody, p24 antigen with reflex to differentiation (12/30/2024 11:25 AM EDT) [facility] HIV Combo AB/AG Negative Negative LAB CHEMISTRY METHOD 12/30/2024 3:28 PM EDT [facility] Blood Venous blood specimen / Unknown Venipuncture / Unknown 12/30/2024 11:25 AM EDT 12/30/2024 11:25 AM EDT Narrative [facility] - 12/30/2024 3:28 PM EDT This assay is a 4th generation assay allowing for earlier detection of HIV infection by detecting the presence of the HIV-1 p24 antigen as well as the traditional antibodies to HIV type 1 (including group O) and type 2. Use of a 4th generation assay is the current CDC recommendation for HIV screening. Deepti Dyson Hollingsworth [facility] BLOOD ORDERABLES Final Res ult Performing Organization Address [facility] Co de Phone Number [facility] [address] [place] [address], [place] [phone] * Cervical Cancer Screening: HPV (05/14/2024) [facility] Cervical Cancer Screening: HPV Negative, Abstracted Historical Provider HEALTH MAINTENANCE Final Result from Last 3 Months or Most Recently Relevant to Health Maintenance Insurance [facility] PL[facility] Advance Directives * Full Code - [...] currently active code status orders. Care Teams Outside Sales Advertising Executive Relationship Specialty Start Date End Date Rani Davis MD [address] [place] [address] PCP - General Internal Medicine 12/22/20
== END 2025-07-28 09:56 | disposition home or self-care (01) ==
LOC: HO.LAB 09:55
PROVIDERS: PCP Internal Medicine; Visit Provider Physician Assistant Medical
DX: N89.8 Other specified noninflammatory disorders of vagina (principal); Z20.2 Contact with and (suspected) exposure to infections with a predominantly sexual mode of transmission
CPT/HCPCS: 81515; 87491; 87591; 99212

== ENCOUNTER 2025-08-08 10:02 | Outpatient (REF) | payer OTHER, SELFPAY ==
[2025-08-08 17:06] LABS: Resp Syncy Virus RNA Qual PCR NEGATIVE (Negative); SARS COV2 PCR INHOUSE POSITIVE (Negative)
== END 2025-08-08 10:03 | disposition home or self-care (01) ==
LOC: HO.LAB 10:02
PROVIDERS: Physician Assistant Medical; PCP Internal Medicine
DX: R09.89 Other specified symptoms and signs involving the circulatory and respiratory systems (principal); Z72.0 Tobacco use
CPT/HCPCS: 87637; 99212

== ENCOUNTER 2025-08-08 10:02 | Outpatient (AMB) | payer OTHER, SELFPAY ==
[2025-08-08 10:50] VITALS: BP 110/64; PULSE 70; TEMP 37; O2SAT 98; BMI 33.9
--- NOTE | 2025-08-08 10:50 | AM.OFFWIN_ITS ---
Intake Vital Signs 08/08/25 10:50 Height 5 ft 6 in Weight 210 lb BMI 33.9 BP 110/64 Blood Pressure Location Lt brachial Position Sitting Pulse 70 Pulse Source Pulse Oximeter Temp 98.6 F Temp Source Oral Pulse Oximetry (%) 98 Oxygen Delivery Method Room Air Intake Visit Reasons: eP loss of voice fatigued ears clogged Intake Note: pt presents with fatigue, loss of voice, bilateral ear pressure and SOB for about a week Patient Tobacco Use Status: Current everyday Tobacco user Allergies No Known Allergies Allergy (Verified 08/08/25 10:59) Do you need a note to return to daycare/school/sports/work: Yes HPI HPI Comments History of Present Illness Details History - The patient is a 30 year old female pr esenting with weakness, loss of voice, and shortness of breath following approximately one week of upper respiratory symptoms. - Her illness began 5 days to a week ago with headache and fever, which lasted for about two days and have since resolved. - Her symptoms progressed to include a c ough, and she now reports significant weakness and loss of voice. - Over the past two days, she has develo ped shortness of breath, wheezing, and intermittent chest tightness. - She was congested with post-nasal drip yesterday, but this has improved. - The patient has a history of asthma an d has used her inhaler twice recently. - She reports that a home test for COVID and influenza was negative. - She has no sick contacts or recent tra michael. Physical Exam General: Cooperative, healthy appearing, comfortable and no acute distress Orientation/consciousness: Patient oriented x3 Limitations: No limitations Head: Normal to inspection Ears: Hearing grossly normal bilaterally, external ears normal and TM's normal bilaterally Nose: Normal external nose present, normal nares present, and no nasal discharge present. Face and sinus: Sinuses nontender to palpation. Mouth: Normal oral and palatal mucosa present and moist mucous membranes noted. Throat: Tonsils normal. Uvula is midline. Posterior oropharynx with erythema and no exudates. Eyes: Appearance normal, both eyes and all related structures Neck: Normal visual inspection, full ROM. No lymphadenopathy noted. Respiratory: Clear to auscultation bilaterally. Normal respiratory effort, able to speak in complete sentences. No respiratory distress, not tachypneic, no tripod positioning and no use of accessory muscles. Wheezing noted. Cardiovascular: Regular rate and rhythm. Normal S1 and S2 Skin: No rashes or lesions noted Patient was informed and verbally consented to the use of an ambient scribe for clinic note documentation during this visit [facility] Medical History (Updated 05/30/25 @ 13:41 by Dominique Alejandro NP) HSV-1 infection Bacterial vaginosis Vaginitis and vulvovaginitis Left ankle pain Reactive airway disease Anxiety and depression Hair thinning Palpable thyroid Fatigue Tubal ligation evaluation Rash Papanicolaou smear of cervix within last year Obesity Vitamin D deficiency Mixed dyslipidemia Surgical History No pertinent past surgical history Family History Father No problems noted. Mother No problems noted. Brother No problems noted. Sister No problems noted. Sister No problems noted. Social History Housing: Apartment Alcohol intake: never Patient Tobacco Use Status: Current everyday Tobacco user Cigarette Packs Per Day: 1 e-Cigarette/Vaping Use: Never Used Current occupational status: unemployed Cognitive needs: No Hearing needs: No Vision needs: Yes Review of Systems Const All systems reviewed & are unremarkable except as noted in HPI and below Physical Exam Vital Signs: Last Vital Signs Temp 98.6 F 08/08/25 10:50 Pulse 70 08/08/25 10:50 BP 110/64 08/08/25 10:50 Pulse Ox 98 08/08/25 10:50 Oxygen Delivery Method Room Air 08/08/25 10:50 BMI result Body Mass Index 33.9 Assessment & Plan Assessment & Plan (1) URI with cough and congestion: Code(s): J06.9 - Acute upper respiratory infection, unspecified (2) Loss of voice: Code(s): R49.1 - Aphonia Plan Most likely Acute Upper Respiratory Infection vs viral illness plan - The patient's symptoms are consistent with a viral upper respiratory infection, though influenza, RSV, and COVID-19 remain on the differential. - Pneumonia and streptococcal pharyngitis are less likely given the clinical presentation. - Plan includes collecting a nasal swab for a respiratory viral panel, including influenza, RSV, and COVID-19, with results expected today. - Recommended supportive care with Tylenol or Motrin as needed for symptoms. - A work note was provided for today. - A 5-day course of prednisone was prescribed to address the inflammation and associated shortness of breath - Prescribed benzonatate (Tessalon Perles) for cough and throat discomfort. - Advised supportive measures including tea, honey, and adequate fluid intake to keep the vocal cords moist and aid recovery. - follow up with PCP Medications: New benzonatate 100 mg PO bid-tid PRN 21 caps 0RF Cough 7 days prednisone 40 mg (2 x 20 mg) PO DAILY 10 tabs 0RF 5 days Coding Level of Care Code Est Pt Level 3 (12149) Diagnoses URI with cough and congestion J06.9 Loss of voice R49.1
--- OUTSIDE RECORDS SUMMARY | 2025-08-08 12:03 | XMS_ITS | Clinical Summary ---
Author Organization [facility] Address [address] [place] [address] Phone Care Team Providers Care Decontamination Worker Name Role Phone Rani Davis MD [...] Site/Laterality Comments OTHER SURGICAL HISTORY 09/2018 PROCEDURE: ID DILATION & CURETTAGE DX&/THER NONOBSTETRIC; COMMENT: tab OVARIAN CYST REMOVAL 04/23/2020 Left PROCEDURE: ID OVARIAN CYSTECTOMY UNI/BI; COMMENT: right ovarian cystectomy [...] 02/21/2022 DX:Varicella v accine; COMMENT: rec'd at [facility] after Family History Medical History Relation [...] for your loved ones. For example, children's service worker or elderly care for an older adult? [...] Complications: dep ression,Lost custody of children Delivery Location:[facility] Comments:pt has custod y 9 2019 Term 40w 4d 3600 g (127 oz) F Vag-S pont None Livin g 8 9 C. Cele , CNM Complications:Precipitate la bor Delivery Location:[facility] 2021 Term 38w 4d M Vag-S pont Livin g B. Bisho p, CNM Delivery Location:[facility] Comments:Apg 8-9-9 2023 Last Filed Vital Signs [...] LAB CHEMISTRY METHOD 12/30/2024 3:27 PM EDT [facility] Blood Venous blood specimen / Unknown Venipuncture / Unknown 12/30/2024 11:25 AM EDT 12/30/2024 11:25 AM EDT Deepti Hollingsworth [facility] BLOOD ORDERABLES Final Res ult Performing Organization Address [facility]/ZIP Co de Phone Number [facility] [address] [place] [address], [place] [phone] * HIV 1,2 antibody, p24 antigen with reflex to differentiation (12/30/2024 11:25 AM EDT) [facility] HIV Combo AB/AG Negative Negative LAB CHEMISTRY METHOD 12/30/2024 3:28 PM EDT [facility] Blood Venous blood specimen / Unknown Venipuncture / Unknown 12/30/2024 11:25 AM EDT 12/30/2024 11:25 AM EDT Narrative [facility] - 12/30/2024 3:28 PM [...] recommendation for HIV screening. Deepti Dyson Hollingsworth [facility] BLOOD ORDERABLES Final Res ult Performing Organization Address [facility] Co de Phone Number [facility] [address] [place] [address], [place] [phone] * Cervical Cancer Screening: HPV (05/14/2024) [facility] Cervical Cancer Screening: HPV Negative, Abstracted Historical Provider HEALTH MAINTENANCE Final Result from Last 3 Months or Most Recently Relevant to Health Maintenance Insurance [facility] PLAN Advance Directives * Full Code - [...] currently active code status orders. Care Teams Decontamination Worker Relationship Specialty Start Date End Date Rani Davis MD [address] [place] [address] PCP - General Internal Medicine 12/22/20
== END 2025-08-08 11:58 | disposition home or self-care (01) ==
PROVIDERS: PCP Internal Medicine; Visit Provider Physician Assistant Medical
DX: J06.9 Acute upper respiratory infection, unspecified (principal); R49.1 Aphonia